=== PATIENT | male | born 1950 | race Caucasian/White ===

== ENCOUNTER 2021-05-20 18:14 | Inpatient (IN) | payer MEDICARE, OTHER ==
[~2021-05-20] VITALS: Ht 167.7 cm; Wt 99.4 kg
[2021-05-20] MEDS: POTASSIUM CL 10MEQ/50ML IVPB 50 ML IV SCH ×2 (20:30→21:30)
[2021-05-20] MEDS ORDERED: HYDROcodone/APAP 5 MG/325 MG (LORTAB) TAB PO PRN (21:30)
[2021-05-20] MEDS ORDERED: HYDROcodone/APAP 5 MG/325 MG (LORTAB) TAB ONE (21:40)
[2021-05-20 21:42] LABS: HEMATOCRIT 45 % (40-54); HEMOGLOBIN 15.8 g/dL (13.3-17.7); MEAN CORPUSCULAR HEMOGLOBIN 29 pg (25-34); MEAN CORPUSCULAR HGB CONC 36 g/dL (32-36); MEAN CORPUSCULAR VOLUME 82 fL (80-99); PLATELET COUNT 259 10^3/uL (130-400); WHITE BLOOD COUNT 10.9 10^3/uL (4.3-11.0)
[2021-05-20] MEDS: 1/2 NS IV SOLUTION 1,000 ML IV SCH (21:43)
[2021-05-20 22:00] LABS: CALCIUM 10.2 MG/DL (8.5-10.1); CREATININE SERUM 2.1 MG/DL (0.60-1.30); POTASSIUM 3.4 MMOL/L (3.6-5.0)
[2021-05-20 22:39] LABS: BILIRUBIN,URINE NEGATIVE (NEGATIVE); CLARITY,URINE CLEAR; COLOR,URINE YELLOW; GLUCOSE, URINE (UA) 1+ (NEGATIVE); KETONES,URINE NEGATIVE (NEGATIVE); LEUKOCYTE ESTERASE ,URINE NEGATIVE (NEGATIVE); NITRITE,URINE NEGATIVE (NEGATIVE); PH,URINE 5.5 (5-9); PROTEIN,URINE NEGATIVE (NEGATIVE)
[2021-05-20 22:42] LABS: BASOPHILS # (AUTO) 0.1 10^3/uL (0.0-0.1); BASOPHILS % (AUTO) 1 % (0-10); EOSINOPHILS % (AUTO) 0 % (0-10); HEMATOCRIT 46 % (40-54); HEMOGLOBIN 16.2 g/dL (13.3-17.7); LYMPHOCYTES # (AUTO) 3.4 10^3/uL (1.0-4.0); LYMPHOCYTES % (AUTO) 28 % (12-44); MEAN CORPUSCULAR HEMOGLOBIN 29 pg (25-34); MEAN CORPUSCULAR HGB CONC 35 g/dL (32-36); MEAN CORPUSCULAR VOLUME 82 fL (80-99); MONOCYTES # (AUTO) 2.2 10^3/uL (0.0-1.0); MONOCYTES % (AUTO) 18 % (0-12); NEUTROPHILS # (AUTO) 6.4 10^3/uL (1.8-7.8); NEUTROPHILS % (AUTO) 52 % (42-75); PLATELET COUNT 273 10^3/uL (130-400); WHITE BLOOD COUNT 12.2 10^3/uL (4.3-11.0)
[2021-05-20 22:53] LABS: BACTERIA,URINE FEW /HPF; SQUAMOUS EPITHELIAL CELL,UR 0-2 /HPF
[2021-05-20 22:54] LABS: AMORPHOUS SEDIMENT,UR FEW AMOR URATES /LPF
[2021-05-20 23:16] LABS: BAND NEUTROPHILS 20 %; EOSINOPHILS % (MANUAL) 1 %; LYMPHOCYTES % (MANUAL) 25 %; MONOCYTES % (MANUAL) 15 %; NEUTROPHILS % (MANUAL) 39 %; POLYCHROMASIA SLIGHT
[2021-05-20 23:27] LABS: CALCIUM 9.5 MG/DL (8.5-10.1)
[2021-05-20 23:32] LABS: CREATININE SERUM 1.9 MG/DL (0.60-1.30)
[2021-05-21] MEDS: POTASSIUM CL 10MEQ/50ML IVPB 50 ML IV SCH ×12 (00:16→22:04)
[2021-05-21] MEDS: cefTRIAXone 2,000 MG in NS (IVPB) 50 ML IV SCH ×2 (00:16→20:02)
[2021-05-21] MEDS ORDERED: HYDROcodone/APAP 5 MG/325 MG (LORTAB) TAB PO PRN (00:45)
[2021-05-21] MEDS: D5 1/2 NS 1000 ML IV SOLUTION 1,000 ML IV SCH ×2 (01:01→08:07)
[2021-05-21] MEDS ORDERED: LIDOCAINE UROJET 2% GEL 10 ML PKG ONE (01:09)
[2021-05-21] MEDS ORDERED: LIDOCAINE UROJET 2% GEL 10 ML PKG TOP ONE (01:15)
[2021-05-21 02:19] LABS: BASOPHILS # (AUTO) 0.1 10^3/uL (0.0-0.1); BASOPHILS % (AUTO) 1 % (0-10); EOSINOPHILS # (AUTO) 0.1 10^3/uL (0.0-0.3); EOSINOPHILS % (AUTO) 1 % (0-10); HEMATOCRIT 43 % (40-54); HEMOGLOBIN 14.8 g/dL (13.3-17.7); LYMPHOCYTES # (AUTO) 2.6 10^3/uL (1.0-4.0); LYMPHOCYTES % (AUTO) 26 % (12-44); MEAN CORPUSCULAR HEMOGLOBIN 29 pg (25-34); MEAN CORPUSCULAR HGB CONC 35 g/dL (32-36); MEAN CORPUSCULAR VOLUME 83 fL (80-99); MONOCYTES # (AUTO) 1.7 10^3/uL (0.0-1.0); MONOCYTES % (AUTO) 18 % (0-12); NEUTROPHILS # (AUTO) 5.3 10^3/uL (1.8-7.8); NEUTROPHILS % (AUTO) 54 % (42-75); PLATELET COUNT 217 10^3/uL (130-400); WHITE BLOOD COUNT 9.8 10^3/uL (4.3-11.0)
[2021-05-21 02:37] LABS: CALCIUM 9.1 MG/DL (8.5-10.1); CREATININE SERUM 1.88 MG/DL (0.60-1.30); POTASSIUM 3.3 MMOL/L (3.6-5.0)
[2021-05-21] MEDS: 1/2 NS IV SOLUTION 1,000 ML IV SCH ×2 (02:59→15:00)
[2021-05-21] MEDS ORDERED: hydrALAZINE (APESOLINE) 20 MG/ML VIAL ONE (04:27)
[2021-05-21] MEDS ORDERED: hydrALAZINE (APESOLINE) 20 MG/ML VIAL IV PRN (04:30)
[2021-05-21 05:53] LABS: ALBUMIN 4.1 GM/DL (3.2-4.5); POTASSIUM 3.3 MMOL/L (3.6-5.0)
[2021-05-21 05:54] LABS: CALCIUM 9.1 MG/DL (8.5-10.1)
[2021-05-21 05:56] LABS: TOTAL PROTEIN 6.7 GM/DL (6.4-8.2)
[2021-05-21 05:57] LABS: BILIRUBIN,TOTAL 0.3 MG/DL (0.1-1.0)
[2021-05-21 05:59] LABS: CREATININE SERUM 1.57 MG/DL (0.60-1.30); PHOSPHORUS 4.6 MG/DL (2.3-4.7)
--- NOTE | 2021-05-21 08:06 | Diagnostic Imaging Report ---
INDICATION: Congestive heart failure. No prior examinations are available for comparison. FINDINGS: There is cardiomegaly. There is some venous congestion. There is no pleural effusion or pneumothorax. The mediastinum is unremarkable. IMPRESSION: Cardiomegaly and mild central pulmonary venous congestion. Dictated by: Dictated on workstation # [id number]
--- NOTE | 2021-05-21 09:40 | Consultation-Cardiology ---
HPI-Cardiology Cardiology Consultation: Date of Consultation 05/21/2021 Date of Admission 05/20/2021 Attending Physician Lea Oquendo MD Admitting Physician Ana Lilia Mcmillan MD Consulting Physician NIKA JOHNSON JR, MD HPI: Time Seen by a Provider: 09:31 Chief Complaint: Reason for consultation: Heart failure. I had the pleasure of seeing Go in the intensive care unit at [facility] in [place], [place] this morning. He normally follows with a barrel inspector tight (Dr. Quintero) at [facility] in [place], [place]. However, he does not know why he sees a barrel inspector tight. He denies any previous history of myocardial infarction or heart failure. About 4 to 5 days ago he was having constipation followed by diarrhea as well as difficulty urinating. He went to the emergency room at [facility] in [place], [place] but they told him he would have to wait several hours to be seen so he went home. Yesterday he was still having issues with difficulty urinating and had general malaise. He may have had some slight shortness of breath. He had his drive him to the emergency room in [place]. He was found to be in diabetic ketoacidosis and was transferred to our facility for further treatment and evaluation. Upon review of the records from the outside emergency room, it appears as though the patient may have dementia and as such, his answers to my questions may not be entirely reliable. The outside records to report that he has a history of coronary artery disease as well as cardiomyopathy. During his outside evaluation, he was felt to also have some degree of heart failure and he was transferred to our facility. Apparently, the patient's had reported the patient was having paroxysmal nocturnal dyspnea and orthopnea and has been sleeping in a recliner chair as opposed to his bed. She also reported that he had been appearing more short of breath. He tells me from time to time he will get chest discomfort but does not recall the nature of the symptom or the last time he had this. When I was speaking with him, he was not having any active chest pain. He does get some occasional lightheaded spells but denies any syncope. He denies any palpitations. He denies any lower extremity edema but does report a rash on both legs. Because of the possible heart failure and his cardiac history, a cardiology consultation was requested. Certain portions of this document may have been dictated utilizing voice recognition technology. Inherent to this technology, typographical and grammatical errors may exist. As much as I am diligent to identify and correct these mistakes, some errors may remain in the document. Review of Systems-Cardiology Review of Systems Other comments Review of 10 organ systems is as per the history of present illness, otherwise negative. [id number] Hx Patient Social History Marrital Status: Smoking Status: Former Smoker Have you traveled recently?: No Alcohol Use?: No Pt feels they are or have been: No Immunizations Up To Date Date of Influenza Vaccine: Feb 17, 2021 Past Medical History PMH As described under Assessment. Family Medical History Family Medical History: He believes heart disease runs in his family but he is not sure of the details. Allergies and Home Medications Allergies Coded Allergies: No Known Drug Allergies (Unverified , 05/20/21) Patient Home Medication List Home Medication List Reviewed: Yes Atorvastatin Calcium (Atorvastatin Calcium) 80 Mg Tablet, 80 MG PO DAILY, (Reported) Entered as Reported by: SIOBHAN CHEUNG on 05/21/211152 Last Action: Reviewed Carvedilol (Carvedilol) 12.5 Mg Tablet, 12.5 MG PO BID, (Reported) Entered as Reported by: SIOBHAN CHEUNG on 05/21/211152 Last Action: Reviewed Dicyclomine HCl (Dicyclomine HCl) 10 Mg Capsule, 10 MG PO QID PRN for GI SPASMS, (Reported) Entered as Reported by: SIOBHAN CHEUNG on 05/21/211155 Last Action: Reviewed Donepezil HCl (Donepezil HCl) 10 Mg Tablet, 10 MG PO HS, (Reported) Entered as Reported by: SIOBHAN CHEUNG on 05/21/211152 Last Action: Reviewed Doxepin HCl (Doxepin HCl) 25 Mg Capsule, 25 MG PO HS, (Reported) Entered as Reported by: SIOBHAN CHEUNG on 05/21/211152 Last Action: Reviewed Fenofibrate (Fenofibrate) 160 Mg Tablet, 160 MG PO DAILY, (Reported) Entered as Reported by: SIOBHAN CHEUNG on 05/21/211152 Last Action: Reviewed Folic Acid (Folic Acid) 1 Mg Tablet, 1 MG PO DAILY, (Reported) Entered as Reported by: SIOBHAN CHEUNG on 05/21/211152 Last Action: Reviewed Hydrocodone/Acetaminophen (Hydrocodone-Acetamin 5-325 mg) 1 Each Tablet, 1 EA PO BID PRN for PAIN-MODERATE (5-7), (Reported) Entered as Reported by: SIOBHAN CHEUNG on 05/21/211152 Last Action: Reviewed Insulin Detemir (Levemir Flextouch) 100 Unit/1 Ml Insuln.pen, 5 UNITS SC HS, (Reported) Entered as Reported by: SIOBHAN CHEUNG on 05/21/211152 Last Action: Reviewed Isosorbide Mononitrate (Isosorbide Mononitrate ER) 30 Mg Tab.er.24h, 30 MG PO DAILY, (Reported) Entered as Reported by: SIOBHAN CHEUNG on 05/21/211152 Last Action: Reviewed Levothyroxine Sodium (Levothyroxine Sodium) 175 Mcg Tablet, 175 MCG PO DAILY, (Reported) Entered as Reported by: SIOBHAN CHEUNG on 05/21/211152 Last Action: Reviewed Lisinopril (Lisinopril) 10 Mg Tablet, 10 MG PO DAILY, (Reported) Entered as Reported by: SIOBHAN CHEUNG on 05/21/211152 Last Action: Reviewed Methotrexate Sodium (Methotrexate) 2.5 Mg Tablet, 15 MG PO FRI, (Reported) Entered as Reported by: SIOBHAN CHEUNG on 05/21/211152 Last Action: Reviewed Omeprazole (Omeprazole) 40 Mg Capsule.dr, 40 MG PO BID WITH MEALS, (Reported) Entered as Reported by: SIOBHAN CHEUNG on 05/21/211152 Last Action: Reviewed Potassium Chloride (Potassium Chloride) 20 Meq Tab.er.prt, 20 MEQ PO HS, (R eported) Entered as Reported by: SIOBHAN CHEUNG on 05/21/211152 Last Action: Reviewed Sitagliptin Phos/Metformin HCl (Janumet 50-1,000 mg Tablet) 1 Each Tablet, 1 EA PO BID WITH MEALS, (Reported) Entered as Reported by: SIOBHAN CHEUNG on 05/21/211152 Last Action: Reviewed Sulfasalazine (Sulfasalazine) 500 Mg Tablet, 1,000 MG PO QID, (Reported) Entered as Reported by: SIOBHAN CHEUNG on 05/21/211152 Last Action: Reviewed Trospium Chloride (Trospium Chloride) 20 Mg Tablet, 20 MG PO BID, (Reported) Entered as Reported by: SIOBHAN CHEUNG on 05/21/211152 Last Action: Reviewed Discontinued Medications Doxycycline Hyclate (Doxycycline Hyclate) 100 Mg Tablet, 100 MG PO QID PRN for GI SPASMS, (Reported) Discontinued Reason: No Longer Taking Entered as Reported by: SIOBHAN CHEUNG on 05/21/211152 Last Action: Discontinued Exam Vital Signs Vital Signs Date Time Temp Pulse Resp B/P (MAP) Pulse Ox O2 Delivery O2 Flow Rate FiO2 05/21/21 18:00 102 17 126/81 99 Room Air 05/21/21 15:44 36.2 Physical Exam General: Alert. No acute distress. Well nourished and appears stated age. Eye: Extraocular movements are intact. Conjunctivae are clear. There are no xanthelasma. HENT: Normocephalic. Atraumatic. Carotid pulsations 2/2 without bruits. Neck: Jugular venous pressure does not appear elevated. No thyromegaly appreciated. Respiratory: Lungs are clear to auscultation. Respirations are non-labored. Breath sounds are equal. Symmetrical chest wall expansion. Cardiovascular: Normal rate. Regular rhythm. No murmur. No gallop. Point of maximal impulse is not appear displaced. Good pulses equal in all extremities. No edema. Gastrointestinal: Soft. Normal bowel sounds. Skin: Skin turgor is normal. There is no pallor. Musculoskeletal: No kyphosis or scoliosis appreciated. Neurologic: Alert and oriented to person, place, time. He may have some degree of short-term memory loss but does recall many of the events leading up to this hospitalization. Cranial nerves 3-12 appear grossly intact. The patient has good motor tone strength in the upper and lower extremities bilaterally. Psychiatric: Cooperative. Appropriate mood & affect. Labs Laboratory Tests Test 05/20/21 21:15 05/20/21 21:35 05/20/21 21:59 05/20/21 22:25 Range/Units Glucometer 331 H 315 H 70-110 MG/DL White Blood Count 10.9 12.2 H 4.3-11.0 10^3/uL Red Blood Count 5.45 5.59 H 4.30-5.52 10^6/uL Hemoglobin 15.8 16.2 13.3-17.7 g/dL Hematocrit 45 46 40-54 % Mean Corpuscular Volume 82 82 80-99 fL Mean Corpuscular Hemoglobin 29 29 25-34 pg Mean Corpuscular Hemoglobin Concent 36 35 32-36 g/dL Red Cell Distribution Width 15.9 H 16.0 H 10.0-14.5 % Platelet Count 259 273 130-400 10^3/uL Mean Platelet Volume 10.0 10.0 9.0-12.2 fL Sodium Level 131 L 135-145 MMOL/L Potassium Level 3.4 L 3.6-5.0 MMOL/L Chloride Level 101 98-107 MMOL/L Carbon Dioxide Level 10 L 21-32 MMOL/L Anion Gap 20 H 5-14 MMOL/L Blood Urea Nitrogen 48 H 7-18 MG/DL Creatinine 2.10 H 0.60-1.30 MG/DL Estimat Glomerular Filtration Rate 33 BUN/Creatinine Ratio 23 Glucose Level 328 H 70-105 MG/DL Calcium Level 10.2 H 8.5-10.1 MG/DL Beta-Hydroxybutyrate (Chem panel) 0.37 H 0.00-0.27 MMOL/L Immature Granulocyte % (Auto) 2 % Neutrophils (%) (Auto) 52 42-75 % Lymphocytes (%) (Auto) 28 12-44 % Monocytes (%) (Auto) 18 H 0-12 % Eosinophils (%) (Auto) 0 0-10 % Basophils (%) (Auto) 1 0-10 % Neutrophils # (Auto) 6.4 1.8-7.8 10^3/uL Lymphocytes # (Auto) 3.4 1.0-4.0 10^3/uL Monocytes # (Auto) 2.2 H 0.0-1.0 10^3/uL Eosinophils # (Auto) 0.0 0.0-0.3 10^3/uL Basophils # (Auto) 0.1 0.0-0.1 10^3/uL Immature Granulocyte # (Auto) 0.2 H 0.0-0.1 10^3/uL Neutrophils % (Manual) 39 % Lymphocytes % (Manual) 25 % Monocytes % (Manual) 15 % Eosinophils % (Manual) 1 % Band Neutrophils 20 % Polychromasia SLIGHT Urine Color YELLOW Urine Clarity CLEAR Urine pH 5.5 5-9 Urine Specific [place] 1.015 L 1.016-1.022 Urine Protein NEGATIVE NEGATIVE Urine Glucose (UA) 1+ H NEGATIVE Urine Ketones NEGATIVE NEGATIVE Urine Nitrite NEGATIVE NEGATIVE Urine Bilirubin NEGATIVE NEGATIVE Urine Urobilinogen 0.2 < = 1.0 MG/DL Urine Leukocyte Esterase NEGATIVE NEGATIVE Urine RBC (Auto) TRACE-I H NEGATIVE Urine RBC 2-5 H /HPF Urine WBC NONE /HPF Urine Squamous Epithelial Cells 0-2 /HPF Urine Crystals PRESENT H /LPF Urine Amorphous Sediment FEW MADDI URATES H /LPF Urine Bacteria FEW H /HPF Urine Casts PRESENT /LPF Urine Hyaline Casts 5-10 H /LPF Urine Mucus NEGATIVE /LPF Urine Culture Indicated NO Test 05/20/21 22:55 05/20/21 23:04 05/20/21 23:12 05/21/21 00:22 Range/Units Sodium Level 130 L 135-145 MMOL/L Potassium Level 3.0 L 3.6-5.0 MMOL/L Chloride Level 101 98-107 MMOL/L Carbon Dioxide Level 9 *L 21-32 MMOL/L Anion Gap 20 H 5-14 MMOL/L Blood Urea Nitrogen 47 H 7-18 MG/DL Creatinine 1.90 H 0.60-1.30 MG/DL Estimat Glomerular Filtration Rate 38 BUN/Creatinine Ratio 25 Glucose Level 306 H 70-105 MG/DL Calcium Level 9.5 8.5-10.1 MG/DL Beta-Hydroxybutyrate (Chem panel) 0.51 H 0.00-0.27 MMOL/L Lactic Acid Level 3.38 *H 0.50-2.00 MMOL/L Glucometer 276 H 253 H 70-110 MG/DL Test 05/21/21 00:58 05/21/21 02:13 05/21/21 02:40 05/21/21 03:09 Range/Units Glucometer 238 H 239 H 245 H 70-110 MG/DL White Blood Count 9.8 4.3-11.0 10^3/uL Red Blood Count 5.12 4.30-5.52 10^6/uL Hemoglobin 14.8 13.3-17.7 g/dL Hematocrit 43 40-54 % Mean Corpuscular Volume 83 80-99 fL Mean Corpuscular Hemoglobin 29 25-34 pg Mean Corpuscular Hemoglobin Concent 35 32-36 g/dL Red Cell Distribution Width 15.9 H 10.0-14.5 % Platelet Count 217 130-400 10^3/uL Mean Platelet Volume 10.0 9.0-12.2 fL Immature Granulocyte % (Auto) 1 % Neutrophils (%) (Auto) 54 42-75 % Lymphocytes (%) (Auto) 26 12-44 % Monocytes (%) (Auto) 18 H 0-12 % Eosinophils (%) (Auto) 1 0-10 % Basophils (%) (Auto) 1 0-10 % Neutrophils # (Auto) 5.3 1.8-7.8 10^3/uL Lymphocytes # (Auto) 2.6 1.0-4.0 10^3/uL Monocytes # (Auto) 1.7 H 0.0-1.0 10^3/uL Eosinophils # (Auto) 0.1 0.0-0.3 10^3/uL Basophils # (Auto) 0.1 0.0-0.1 10^3/uL Immature Granulocyte # (Auto) 0.1 0.0-0.1 10^3/uL Sodium Level 130 L 135-145 MMOL/L Potassium Level 3.3 L 3.6-5.0 MMOL/L Chloride Level 104 98-107 MMOL/L Carbon Dioxide Level 11 L 21-32 MMOL/L Anion Gap 15 H 5-14 MMOL/L Blood Urea Nitrogen 45 H 7-18 MG/DL Creatinine 1.88 H 0.60-1.30 MG/DL Estimat Glomerular Filtration Rate 38 BUN/Creatinine Ratio 24 Glucose Level 266 H 70-105 MG/DL Lactic Acid Level 2.69 *H 0.50-2.00 MMOL/L Calcium Level 9.1 8.5-10.1 MG/DL B-Type Natriuretic Peptide 43.3 <100.0 PG/ML Test 05/21/21 04:02 05/21/21 05:00 05/21/21 05:36 05/21/21 06:05 Range/Units Glucometer 216 H 147 H 70-110 MG/DL Sodium Level 136 135-145 MMOL/L Potassium Level 3.3 L 3.6-5.0 MMOL/L Chloride Level 105 98-107 MMOL/L Carbon Dioxide Level 13 L 21-32 MMOL/L Anion Gap 18 H 5-14 MMOL/L Blood Urea Nitrogen 43 H 7-18 MG/DL Creatinine 1.57 H 0.60-1.30 MG/DL Estimat Glomerular Filtration Rate 47 BUN/Creatinine Ratio 27 Glucose Level 131 H 70-105 MG/DL Lactic Acid Level 1.90 0.50-2.00 MMOL/L Calcium Level 9.1 8.5-10.1 MG/DL Corrected Calcium 9.0 8.5-10.1 MG/DL Phosphorus Level 4.6 2.3-4.7 MG/DL Magnesium Level 2.0 1.6-2.4 MG/DL Total Bilirubin 0.3 0.1-1.0 MG/DL Aspartate Amino Transf (AST/SGOT) 18 5-34 U/L Alanine Aminotransferase (ALT/SGPT) 20 0-55 U/L Alkaline Phosphatase 72 40-136 U/L Troponin I < 0.028 <0.028 NG/ML Total Protein 6.7 6.4-8.2 GM/DL Albumin 4.1 3.2-4.5 GM/DL Beta-Hydroxybutyrate (Chem panel) 0.07 0.00-0.27 MMOL/L Serum Alcohol < 10 <10 MG/DL Stool Occult Blood Immunoassay POSITIVE H NEGATIVE Test 05/21/21 07:02 05/21/21 07:59 05/21/21 09:08 05/21/21 10:02 Range/Units Glucometer 87 145 H 168 H 121 H 70-110 MG/DL Test 05/21/21 10:25 05/21/21 11:21 05/21/21 13:02 05/21/21 13:04 Range/Units Sodium Level 136 135-145 MMOL/L Potassium Level 3.3 L 3.6-5.0 MMOL/L Chloride Level 106 98-107 MMOL/L Carbon Dioxide Level 14 L 21-32 MMOL/L Anion Gap 16 H 5-14 MMOL/L Blood Urea Nitrogen 40 H 7-18 MG/DL Creatinine 1.55 H 0.60-1.30 MG/DL Estimat Glomerular Filtration Rate 48 BUN/Creatinine Ratio 26 Glucose Level 107 H 70-105 MG/DL Calcium Level 9.0 8.5-10.1 MG/DL Glucometer 120 H 153 H 70-110 MG/DL Urine Color YELLOW Urine Clarity SL CLOUDY Urine pH 5.5 5-9 Urine Specific [place] 1.025 H 1.016-1.022 Urine Protein TRACE H NEGATIVE Urine Glucose (UA) 1+ H NEGATIVE Urine Ketones NEGATIVE NEGATIVE Urine Nitrite NEGATIVE NEGATIVE Urine Bilirubin NEGATIVE NEGATIVE Urine Urobilinogen 0.2 < = 1.0 MG/DL Urine Leukocyte Esterase NEGATIVE NEGATIVE Urine RBC (Auto) 2+ H NEGATIVE Urine RBC 10-25 H /HPF Urine WBC 10-25 H /HPF Urine Squamous Epithelial Cells 0-2 /HPF Urine Renal Epithelial Cells 0-2 /HPF Urine Crystals PRESENT H /LPF Urine Uric Acid Crystals LARGE H /LPF Urine Bacteria MODERATE H /HPF Urine Casts NONE /LPF Urine Mucus NEGATIVE /LPF Urine Culture Indicated YES Test 05/21/21 13:54 05/21/21 14:57 05/21/21 15:58 05/21/21 16:21 Range/Units Glucometer 137 H 133 H 123 H 70-110 MG/DL Sodium Level 136 135-145 MMOL/L Potassium Level 3.4 L 3.6-5.0 MMOL/L Chloride Level 106 98-107 MMOL/L Carbon Dioxide Level 14 L 21-32 MMOL/L Anion Gap 16 H 5-14 MMOL/L Blood Urea Nitrogen 36 H 7-18 MG/DL Creatinine 1.57 H 0.60-1.30 MG/DL Estimat Glomerular Filtration Rate 47 BUN/Creatinine Ratio 23 Glucose Level 119 H 70-105 MG/DL Calcium Level 8.8 8.5-10.1 MG/DL Test 05/21/21 16:56 05/21/21 18:02 05/21/21 18:46 Range/Units Glucometer 141 H 149 H 177 H 70-110 MG/DL Radiology ECHOCARDIOGRAM (05/21/2021): 1. This is a technically difficult study due to poor image quality. It almost appeared as though the patient has dextrocardia since most of the images were obtained from the right side of the chest. 2. Left ventricle: The cavity size is normal. There is mild concentric hypertrophy. Systolic function is normal. The estimated ejection fraction is 55- 60%. Regional wall motion abnormalities cannot be excluded due to poor endocardial definition. Doppler parameters are consistent with abnormal left ventricular relaxation (grade 1 diastolic dysfunction). 3. Mitral valve: There is mild regurgitation. 4. Pulmonary arteries: The estimated pulmonary artery systolic pressure is 30 mmHg assuming a right atrial pressure of 5 mmHg. ECG Impression ECG Comment Sinus rhythm with left bundle branch block. Diagnosis/Problems Diagnosis/Problems (1) Acute on chronic heart failure with preserved ejection fraction (HFpEF) Assessment & Plan: His echocardiogram from today shows a normal ejection fraction. However, he was taking carvedilol and lisinopril at home which suggests at some point he may have had left ventricular systolic dysfunction. If his blood pressure and renal function will tolerate these medications, we will resume them. I have requested records from his regular barrel inspector tight in [place]. (2) Coronary artery disease without angina pectoris Assessment & Plan: His outside records show a reported history of coronary artery disease. He is not aware of this diagnosis. I will wait to review records from his regular barrel inspector tight in [place]. (3) Primary hypertension Assessment & Plan: Blood pressure is presently controlled on no antihypertensive medication. As above, resume his regular outpatient medications when his blood pressure and renal function will tolerate. (4) Mixed hyperlipidemia Assessment & Plan: I have resumed his atorvastatin and added a lipid panel to previous labs. (5) Chronic kidney disease, stage 3 Assessment & Plan: He is receiving some gentle hydration. This will need to be monitored closely. For now, I will hold off on resuming his lisinopril. (6) Obesity Assessment & Plan: He needs to be counseled on weight loss. NIKA JOHNSON JR, MD May 21, 2021 09:40
[2021-05-21 09:41] LABS: CHLORIDE 107 MMOL/L (98-107); POTASSIUM 3.4 MMOL/L (3.6-5.0); SODIUM 136 MMOL/L (135-145)
[2021-05-21 09:42] LABS: CALCIUM 9.2 MG/DL (8.5-10.1)
[2021-05-21 09:43] LABS: GLUCOSE 129 MG/DL (70-105)
[2021-05-21 09:44] LABS: CARBON DIOXIDE 12 MMOL/L (21-32)
[2021-05-21 09:47] LABS: CREATININE SERUM 1.57 MG/DL (0.60-1.30); GFR ESTIMATED 47
[2021-05-21 09:48] LABS: BUN/CREATININE RATIO 27
--- NOTE | 2021-05-21 10:39 | Tele-ICU Consult ---
History of Present Illness History of Present Illness Date Seen by Provider: May 21, 2021 Time Seen by Provider: 09:39 Date of Admission Allergies and Home Medications Allergies Coded Allergies: No Known Drug Allergies (Unverified , 05/20/21) Past Medical/Social/Family Hx Patient Social History Marrital Status: Tobacco Use?: No Smoking Status: Former Smoker Substance use?: No Alcohol Use?: No Pt stated abuse/neglect: No Immunizations Up To Date Influenza Vaccine Up-to-Date: Yes; Up-to-Date First/Initial COVID19 Vaccinat: 2020 Current Status Advance Directives: No Communicates: Verbally Primary Language: Maori Preferred Spoken Language: Maori Sensory deficits: Hearing impairment Implanted or Applied Medical D: Orthopedic hardware Review of Systems Constitutional: see HPI Focused Exam Lactate Level 05/20/21 23:04: Lactic Acid Level 3.38*H 05/21/21 02:13: Lactic Acid Level 2.69*H 05/21/21 05:36: Lactic Acid Level 1.90 Height, Weight, BMI Height: '" Weight: lbs. oz. kg; 32.96 BMI Method: Exam Exam Patient acknowledged, consented, and participated in this virtual visit which was conducted using real time audio/video Vital Signs Date Time Temp Pulse Resp B/P (MAP) Pulse Ox O2 Delivery O2 Flow Rate FiO2 05/21/21 08:45 86 32 150/88 99 05/21/21 08:30 86 22 133/87 96 05/21/21 08:15 85 21 146/86 99 05/21/21 08:00 93 26 138/80 96 05/21/21 07:45 87 22 124/78 95 05/21/21 07:30 85 20 111/73 94 05/21/21 07:15 83 15 115/75 97 05/21/21 07:00 120/77 05/21/21 07:00 85 05/21/21 06:26 100 Room Air 05/21/21 06:00 82 19 128/78 97 Room Air 05/21/21 05:00 85 10 117/96 99 Room Air 05/21/21 04:15 83 17 126/82 97 Room Air 05/21/21 04:00 35.9 Room Air 05/21/21 03:30 82 13 135/101 96 Room Air 05/21/21 03:10 81 17 183/142 98 Room Air 05/21/21 03:04 100 Room Air 05/21/21 03:00 84 27 207/137 97 Room Air 05/21/21 02:45 86 17 155/96 97 Room Air 05/21/21 01:00 94 05/21/21 01:00 94 19 155/104 100 Room Air 05/21/21 00:00 36.0 05/21/21 00:00 100 Room Air 05/21/21 00:00 92 24 142/93 97 Room Air 05/20/21 23:00 90 22 134/90 97 Room Air 05/20/21 22:00 90 32 154/103 99 Room Air 05/20/21 21:45 89 26 152/90 99 Room Air 05/20/21 21:30 95 17 134/102 99 Room Air 05/20/21 21:15 96 25 120/87 97 Room Air 05/20/21 21:09 96 05/20/21 21:08 35.7 96 28 143/90 98 Room Air 05/20/21 21:05 100 Room Air I & O 05/21/21 07:00 Intake Total 1500 ml Output Total 875 ml Balance 625 ml Height & Weight Height: '" Weight: lbs. oz. kg; 32.96 BMI Method: General Appearance: No Apparent Distress Results Lab Laboratory Tests 05/20/21 21:35 05/20/21 22:25 05/20/21 22:55 05/21/21 02:13 05/21/21 05:36 Assessment/Plan Assessment/Plan (Tele-ICU Physician , consultation) Available chart/ vitals / labs / Images reviewed no H&P or notes yet in EMR ROS as per chart and RN report Now in ICU, hemodynamically stable Video assessment done using teleICU camera, rest of exam as per RN Discussed with RN. Consultants: cards Hospital course: 05/21 - transfer fropm other hosp with DKA , CHIARA , diarrhea A/P DKA - in insulin gtt - follow labs CHIARA - good UO - follow - baseline unknown - ? need US if no improvement - avoid nephrotoxic meds Diarrhea , reported - ? w/up in other facility done - as per PCP h/o CAD, CM - crds consulted , - ECHO ID - in ceftriaxine - UA neg - cx pending Lines : (Central Line Necessity Reviewed) [place]: + OG: Nutrition: Analgesia: Anxiety/ delirium VTE Prophylaxis: Stress Ulcer Prophylaxis: hep sq Plans in collaboration with bedside consultants and IM MDs. Discussed with RN to reach out if any questions or concerns A total of 32 minutes of critical care time was devoted to this patient today, required to treat and/or prevent further deterioration of critical care condition ( as above ) . VERA DELGADO MD May 21, 2021 10:39
[2021-05-21] MEDS ORDERED: FOLI1TAB33 PO (11:53)
[2021-05-21] MEDS ORDERED: OMEP40CA6 PO (11:53)
[2021-05-21] MEDS ORDERED: INSU100I29 SC (11:53)
[2021-05-21] MEDS ORDERED: METH2.5T PO (11:53)
[2021-05-21] MEDS ORDERED: ATOR80TA76 PO (11:53)
[2021-05-21] MEDS ORDERED: DOXE25CA46 PO (11:53)
[2021-05-21] MEDS ORDERED: LEVO175T5 PO (11:53)
[2021-05-21] MEDS ORDERED: TROS20TA3 PO (11:53)
[2021-05-21] MEDS ORDERED: ISOS30TA82 PO (11:53)
[2021-05-21] MEDS ORDERED: CARV12.53 PO (11:53)
[2021-05-21] MEDS ORDERED: FENO160T12 PO (11:53)
[2021-05-21] MEDS ORDERED: DOXY100T2 PO (11:53)
[2021-05-21] MEDS ORDERED: SLF500T PO (11:53)
[2021-05-21] MEDS ORDERED: LISI10TA25 PO (11:53)
[2021-05-21] MEDS ORDERED: DONE10TA41 PO (11:53)
[2021-05-21] MEDS ORDERED: POTA-179 PO (11:53)
[2021-05-21] MEDS ORDERED: ACHD5005 PO (11:53)
[2021-05-21] MEDS ORDERED: SITA1TAB6 PO (11:53)
[2021-05-21] MEDS ORDERED: DICY10CA12 PO (11:56)
--- NOTE | 2021-05-21 12:20 | History & Physical-Hospitalist ---
VERONIKA MARRERO MED STUDENT 05/21/21 1220: History of Present Illness HPI/Chief Complaint This is a 71 yo male who was admitted from [facility] for DKA and sepsis. Pt has hx of diabetes, dementia, CAD, cardiomyopathy, HTN, hyperlipidemia, hypothyroidism, JANI and arthritis being treated with methotrexate. Pt is a poor historian d/t dementia and this information is based off his interview. Pt reports he was having diarrhea, cough, SOA when lying flat and poor appetite for the last five days. Pt also reports his shins have been itchy and red recently. Pt denies any current fever, chills, N/V, chest pain, SOA. Pt reports he was taking trulicity up until a month ago and is unsure of what he takes now. He did state he takes methotrexate for arthritis. Pt follows up for GERD with Dr. Moreira at [facility] and reports he sees him every six months to have his "esophagus stretched". Pt reports his last colonoscopy and EGD were six months ago. Source: patient Exam Limitations: other (Dementia) Date Seen 05/21/21 Time Seen by a Provider: 09:45 Attending Physician Bettye Coleman MD PCP Ana Lilia Mcmillan MD Referring Physician Date of Admission May 20, 2021 at 21:02 Home Medications & Allergies Home Medications Reviewed patient Home Medication Reconciliation performed by pharmacy medication reconciliations master motorcycle technician and/or nursing. Patients Allergies have been reviewed. Allergies Allergies Coded Allergies No Known Drug Allergies (Unverified05/20/21) Past Euyrmzf-Toxudg-Vtxzgl Hx Patient Social History Marrital Status: Tobacco Use?: No Smoking Status: Former Smoker Substance use?: No Alcohol Use?: No Pt feels they are or have been: No Immunizations Up To Date Date of Influenza Vaccine: Feb 17, 2021 First/Initial COVID19 Vaccinat: 2020 Current Status Advance Directives: No Communicates: Verbally Primary Language: Polish Preferred Spoken Language: Polish Sensory deficits: Hearing impairment Implanted or Applied Medical D: Orthopedic hardware Review of Systems Constitutional: No chills, No fever EENTM: no symptoms reported Respiratory: cough; No short of breath Cardiovascular: No chest pain, No palpitations Gastrointestinal: diarrhea; No nausea, No vomiting Genitourinary: no symptoms reported Musculoskeletal: no symptoms reported Skin: pruritus (bilateral LE), rash (bilateral LE) Psychiatric/Neurological: No Symptoms Reported Physical Exam Physical Exam Vital Signs Vital Signs - First Documented 05/20/21 05/20/21 21:05 21:08 Temp 35.7 Pulse 96 Resp 28 B/P (MAP) 143/90 Pulse Ox 100 O2 Delivery Room Air Capillary Refill : Height, Weight, BMI Height: '" Weight: lbs. oz. kg; 32.96 BMI Method: General Appearance: No Apparent Distress, WD/WN HEENT: PERRL/EOMI Respiratory: Chest Non Tender, No Accessory Muscle Use, No Respiratory Distress Cardiovascular: No Murmur, Tachycardia Gastrointestinal: Normal Bowel Sounds, Tenderness (RUQ) Extremity: Pedal Edema (1+ pitting edema bilaterally) Neurologic/Psychiatric: Alert, Oriented x3 Skin: Warm/Dry, Petechia (bilateral shins), Rash (bilateral shins) Results Results/Procedures Labs Laboratory Tests 05/20/21 21:35 05/20/21 22:25 05/20/21 22:55 05/21/21 02:13 05/21/21 05:36 Patient resulted labs reviewed. Assessment/Plan Admission Diagnosis DKA Reason for Inpatient Admission: DKA Assessment and Plan This is a 71 yo male who is admitted for DKA and Sepsis d/t colitis and prostatitis. DKA -Insulin drip -Dextrose/NaCl at 100ml/hr Sepsis d/t colitis and prostatitis -CT from [place] showed colitis and prostatitis -Surgery consulted, appreciate their recommendations -Lactic acidosis Acute on chronic heart failure -Cardiology consulted, appreciate their recommendations -Elevated BNP and troponin -CXR showed cardiomegaly and central pulmonary venous congestion -Echo pending Coronary artery disease HTN Hyperlipidemia Acute kidney injury with CKD 3 Obesity Disposition: Likely to stay 48-72 hours BETTYE COLEMAN MD 05/21/212020: History of Present Illness Source: patient Exam Limitations: other (Dementia) Time Seen by a Provider: 10:00 Past Fbyrrra-Ywcgcc-Vrljda Hx Past Medical History Coronary Artery Disease, Hypertension Dementia Gastroesophageal Reflux Rheumatoid Arthritis Diabetes, Non-Insulin dep Family Medical History No Pertinent Family Hx Physical Exam Physical Exam General Appearance: No Apparent Distress, Obese HEENT: PERRL/EOMI, Pharynx Normal Neck: Normal Inspection, Supple Respiratory: Lungs Clear, Normal Breath Sounds, No Respiratory Distress Cardiovascular: No Murmur, Tachycardia Gastrointestinal: Normal Bowel Sounds, Soft, Tenderness (diffusely, right > left) Extremity: Normal Inspection, Non Tender, Pedal Edema (1+ pitting edema bilaterally) Neurologic/Psychiatric: Alert, No Motor/Sensory Deficits, Other (flat affect) Skin: Warm/Dry, Petechia (bilateral shins) Results Results/Procedures Imaging: Reviewed Imaging Report Assessment/Plan Admission Diagnosis Admission Status: Inpatient Order (span 2 midnights) Reason for Inpatient Admission: IV insulin Surgical evaluation Assessment and Plan Admitted with DKA and colitis. Started on IV insulin. CT with colitis, surgery consulted. Critical Care Critically Ill Patient Diagnosis/Problems Diagnosis/Problems (1) DKA (diabetic ketoacidosis) Status: Acute Qualifiers: Diabetes mellitus type: type 2 Diabetes mellitus complication detail: without coma Qualified Codes: E11.10 - Type 2 diabetes mellitus with ketoacidosis without coma (2) Metabolic acidosis Status: Acute (3) Type 2 diabetes mellitus with complication Status: Acute (4) Chronic kidney disease, stage 3 Status: Chronic (5) Obesity Status: Chronic (6) Acute on chronic heart failure with preserved ejection fraction (HFpEF) Status: Acute Supervisory-Addendum Brief Verification & Attestation Participated in pt care: history, MDM, physical Personally performed: exam, history, MDM, supervision of care Care discussed with: Medical Student Procedures: n/a Results interpretation: Verified all documentation A medical student performed and documented this service in my presence. I review ed and verified all information documented by the medical student and made modifications to such information, when appropriate. I personally performed the physical exam and medical decision making. VERONIKA MARRERO MED STUDENT May 21, 2021 12:20 BETTYE COLEMAN MD May 21, 2021 20:21
[2021-05-21 12:24] LABS: POTASSIUM 3.3 MMOL/L (3.6-5.0)
[2021-05-21 12:30] LABS: CREATININE SERUM 1.55 MG/DL (0.60-1.30)
--- NOTE | 2021-05-21 12:45 | Diagnostic Imaging Report ---
INDICATION: Shortness of breath. TIME OF EXAM: 12:35 PM Comparison is made with prior chest earlier same day. Heart size stable. Hemidiaphragms bilaterally elevated. Lungs are clear. There is no infiltrate or failure. No effusion or pneumothorax is detected. IMPRESSION: No acute cardiopulmonary process is detected. Dictated by: Dictated on workstation # [id number]
[2021-05-21 13:32] LABS: BILIRUBIN,URINE NEGATIVE (NEGATIVE); CLARITY,URINE SL CLOUDY; COLOR,URINE YELLOW; GLUCOSE, URINE (UA) 1+ (NEGATIVE); KETONES,URINE NEGATIVE (NEGATIVE); LEUKOCYTE ESTERASE ,URINE NEGATIVE (NEGATIVE); NITRITE,URINE NEGATIVE (NEGATIVE); PH,URINE 5.5 (5-9); PROTEIN,URINE TRACE (NEGATIVE)
[2021-05-21 13:45] LABS: BACTERIA,URINE MODERATE /HPF; RENAL EPITHELIAL CELLS,URINE 0-2 /HPF; SQUAMOUS EPITHELIAL CELL,UR 0-2 /HPF; URIC ACID CRYSTALS,URINE LARGE /LPF
--- NOTE | 2021-05-21 14:56 | CONSULTATION REPORT ---
DATE OF SERVICE: 05/21/2021 ATTENDING PRIMARY CARE PHYSICIAN: Ana Lilia Mcmillan. ADMITTING PHYSICIAN: Dr. Oquendo. HISTORY OF PRESENT ILLNESS: The patient is a 71-year-old male who was transferred from [place] due to diabetic ketoacidosis and sepsis. He has a number of medical comorbidities including diabetes, dementia, coronary artery disease, cardiomyopathy and hypertension. He is a poor historian due to history of dementia. He reports that he was having a cough and diarrhea for the past 5 days. He does not know of any red blood per rectum nor any dark tarry stools. He also has a history of gastroesophageal reflux disease as well as dysphagia and a known esophageal stricture and has undergone previous balloon dilatations in the past. A CT scan was performed in [place], which did show colitis. Due to his significant past medical history and likely global hypoperfusion, dehydration and low flow states this was the cause of his colitis. PAST MEDICAL HISTORY: Diabetes, congestive heart failure, coronary artery disease, hypertension, hyperlipidemia, chronic kidney disease, obstructive sleep apnea, hypothyroid, hyperlipidemia, hypertension, degenerative joint disease. PAST SURGICAL HISTORY: None known. ALLERGIES: No known drug allergies. MEDICATIONS: Atorvastatin 80 mg daily, carvedilol 12.5 mg daily, dicyclomine 10 mg q.i.d., donepezil 10 mg daily, doxepin 25 mg daily, fenofibrate 160 mg daily, folic acid 1 mg daily, hydrocodone p.r.n., detemir insulin 5 units at bedtime, isosorbide mononitrate 30 mg daily, levothyroxine 175 mcg daily, lisinopril 10 mg daily, methotrexate 2.5 mg weekly, omeprazole 40 mg daily, potassium 20 mEq daily, Janumet 1 tab b.i.d., sulfasalazine 500 mg q.i.d., trospium 20 mg b.i.d. SOCIAL HISTORY: Previous smoke, negative alcohol. FAMILY HISTORY: Noncontributory. VITAL SIGNS: Blood pressure 136/82, pulse 91, respirations 25, pulse ox 93% on room air. REVIEW OF SYSTEMS: A well-nourished male currently in no acute distress. He is slightly confused; however, does answer majority of questions appropriately. Currently, he is not experiencing any shortness of breath or difficulty breathing. No chest pain, palpitations, diaphoresis. No nausea, vomiting with approximately 5-day history of loose stools. He does not know of any red blood per rectum nor any dark tarry stools; however, he was Hemoccult positive. No fever, chills, no recent inadvertent weight loss. All other review of systems negative. PHYSICAL EXAMINATION: CHEST: Scattered rales and rhonchi bilaterally. HEART: Regular, no murmurs. EXTREMITIES: +1/3 bilateral lower extremity edema, negative Homans sign. HEENT: No scleral icterus. NECK: No cervical lymphadenopathy. ABDOMEN: Soft, nondistended. There is mild discomfort in the left lateral abdomen upon deep palpation. No peritoneal signs. SKIN: Warm, dry. LABORATORY DATA: WBC 9.8, hemoglobin 14.8, hematocrit 43, platelets 217. BUN 40, creatinine 1.55. Urinalysis, moderate amount of bacteria. ASSESSMENT AND PLAN: A 71-year-old male with ischemic colitis due to hypovolemia and low flow states. This was also coupled with his history of coronary artery disease and likely peripheral vascular disease. Our recommendation is to proceed with conservative management with IV antibiotics as well as bowel rest and to optimize his perfusion status by increasing his intravascular volume as well as optimizing his cardiac status. Once he is better and asymptomatic, we will then recommend a followup colonoscopy in approximately 6 to 8 weeks. Job ID: [id number] DocumentID: [id number] Dictated Date: 05/21/2021 14:36:19 Fur Ironer Date: 05/21/2021 14:54:34 Dictated By: HARI NG MD
[2021-05-21 16:41] LABS: POTASSIUM 3.4 MMOL/L (3.6-5.0)
[2021-05-21 16:42] LABS: CALCIUM 8.8 MG/DL (8.5-10.1)
[2021-05-21 16:47] LABS: CREATININE SERUM 1.57 MG/DL (0.60-1.30)
[2021-05-21] MEDS: methylPREDNISolone 40 MG/ML (Solu-MEDROL) VIAL IV SCH (18:26)
[2021-05-21 19:50] LABS: CHOLESTEROL 108 MG/DL (< 200); HDL CHOLESTEROL 25 MG/DL (40-60); TRIGLYCERIDES 249 MG/DL (<150); VLDL CHOLESTEROL 50 MG/DL (5-40)
[2021-05-21] MEDS: metroNIDAZOLE 500MG/100ML IVPB 100 ML IV SCH (20:02)
[2021-05-21 21:31] LABS: POTASSIUM 3.7 MMOL/L (3.6-5.0)
[2021-05-21 21:32] LABS: CALCIUM 8.6 MG/DL (8.5-10.1)
[2021-05-21 21:36] LABS: CREATININE SERUM 1.44 MG/DL (0.60-1.30)
[2021-05-22] MEDS: methylPREDNISolone 40 MG/ML (Solu-MEDROL) VIAL IV SCH ×2 (00:32→05:55)
[2021-05-22] MEDS: POTASSIUM CL 10MEQ/50ML IVPB 50 ML IV SCH ×5 (00:33→08:19)
[2021-05-22 01:13] LABS: BASOPHILS # (AUTO) 0.1 10^3/uL (0.0-0.1); BASOPHILS % (AUTO) 1 % (0-10); EOSINOPHILS % (AUTO) 0 % (0-10); HEMATOCRIT 42 % (40-54); HEMOGLOBIN 14.2 g/dL (13.3-17.7); LYMPHOCYTES # (AUTO) 1.2 10^3/uL (1.0-4.0); LYMPHOCYTES % (AUTO) 15 % (12-44); MEAN CORPUSCULAR HEMOGLOBIN 29 pg (25-34); MEAN CORPUSCULAR HGB CONC 34 g/dL (32-36); MEAN CORPUSCULAR VOLUME 84 fL (80-99); MEAN PLATELET VOLUME 10.1 fL (9.0-12.2); MONOCYTES # (AUTO) 0.5 10^3/uL (0.0-1.0); MONOCYTES % (AUTO) 6 % (0-12); NEUTROPHILS # (AUTO) 6.3 10^3/uL (1.8-7.8); NEUTROPHILS % (AUTO) 77 % (42-75); PLATELET COUNT 206 10^3/uL (130-400); WHITE BLOOD COUNT 8.1 10^3/uL (4.3-11.0)
[2021-05-22 01:22] LABS: ALBUMIN 3.8 GM/DL (3.2-4.5); POTASSIUM 4.1 MMOL/L (3.6-5.0)
[2021-05-22 01:23] LABS: CALCIUM 8.5 MG/DL (8.5-10.1)
[2021-05-22 01:24] LABS: TOTAL PROTEIN 6.2 GM/DL (6.4-8.2)
[2021-05-22 01:26] LABS: BILIRUBIN,TOTAL 0.4 MG/DL (0.1-1.0)
[2021-05-22] MEDS: 1/2 NS IV SOLUTION 1,000 ML IV SCH (01:27)
[2021-05-22 01:28] LABS: CREATININE SERUM 1.34 MG/DL (0.60-1.30); PHOSPHORUS 2.8 MG/DL (2.3-4.7)
[2021-05-22 01:31] LABS: MAGNESIUM 1.8 MG/DL (1.6-2.4)
[2021-05-22] MEDS: D5 1/2 NS 1000 ML IV SOLUTION 1,000 ML IV SCH (03:40)
[2021-05-22 05:28] LABS: CALCIUM 8.5 MG/DL (8.5-10.1); CREATININE SERUM 1.43 MG/DL (0.60-1.30); POTASSIUM 4.3 MMOL/L (3.6-5.0)
[2021-05-22] MEDS: metroNIDAZOLE 500MG/100ML IVPB 100 ML IV SCH ×2 (08:19→19:44)
[2021-05-22] MEDS: SODIUM BICARBONATE 650 MG TABLET (NON-FORMULARY) PO SCH ×4 (08:22→19:43)
--- NOTE | 2021-05-22 10:07 | Cardiology Progress Note ---
Progress Note-Cardiology Events since last exam Date Seen by Provider: May 22, 2021 Time Seen by Provider: 10:05 Events since last exam I am following him due to heart failure. He was laying flat in bed. He states his breathing is improved. He denies chest discomfort, palpitations, syncope, or ankle edema. He wants to know when he can go home. Certain portions of this document may have been dictated utilizing voice recognition technology. Inherent to this technology, typographical and grammatical errors may exist. As much as I am diligent to identify and correct these mistakes, some errors may remain in the document. Vitals Last set of Vitals Signs Vital Signs 05/22/21 14:00 Pulse 109 Resp 36 B/P (MAP) 126/79 Pulse Ox 100 O2 Delivery Room Air Labs Labs Laboratory Tests 05/21/21 16:21 05/21/21 21:18 05/22/21 00:55 05/22/21 04:50 05/22/21 09:20 05/22/21 14:09 Exam Vital Signs Vital Signs Date Time Temp Pulse Resp B/P (MAP) Pulse Ox O2 Delivery O2 Flow Rate FiO2 05/22/21 14:00 109 36 126/79 100 Room Air 05/22/21 04:00 35.7 Physical Exam General: Alert. No acute distress. Eye: No xanthelasma. HENT: Normocephalic. Neck: Jugular venous pressure does not appear elevated. Respiratory: Lungs are clear to auscultation. Respirations are non-labored. Breath sounds are equal. Symmetrical chest wall expansion. Cardiovascular: Normal rate. Regular rhythm. No murmur. No gallop. No edema. Gastrointestinal: Soft. Normal bowel sounds. Skin: Warm. Dry. Neurologic: Alert and oriented to person, place, time. Cranial nerves 3-11 grossly intact. Psychiatric: Cooperative. Appropriate mood & affect. Labs Laboratory Tests Test 05/21/21 14:57 05/21/21 15:58 05/21/21 16:21 05/21/21 16:56 Range/Units Glucometer 133 H 123 H 141 H 70-110 MG/DL Sodium Level 136 135-145 MMOL/L Potassium Level 3.4 L 3.6-5.0 MMOL/L Chloride Level 106 98-107 MMOL/L Carbon Dioxide Level 14 L 21-32 MMOL/L Anion Gap 16 H 5-14 MMOL/L Blood Urea Nitrogen 36 H 7-18 MG/DL Creatinine 1.57 H 0.60-1.30 MG/DL Estimat Glomerular Filtration Rate 47 BUN/Creatinine Ratio 23 Glucose Level 119 H 70-105 MG/DL Calcium Level 8.8 8.5-10.1 MG/DL Triglycerides Level 249 H <150 MG/DL Cholesterol Level 108 < 200 MG/DL LDL Cholesterol Direct 49 1-129 MG/DL VLDL Cholesterol 50 H 5-40 MG/DL HDL Cholesterol 25 L 40-60 MG/DL Test 05/21/21 18:02 05/21/21 18:46 05/21/21 19:58 05/21/21 20:48 Range/Units Glucometer 149 H 177 H 228 H 196 H 70-110 MG/DL Test 05/21/21 21:18 05/21/21 21:53 05/21/21 22:49 05/21/21 23:57 Range/Units Sodium Level 135 135-145 MMOL/L Potassium Level 3.7 3.6-5.0 MMOL/L Chloride Level 106 98-107 MMOL/L Carbon Dioxide Level 15 L 21-32 MMOL/L Anion Gap 14 5-14 MMOL/L Blood Urea Nitrogen 32 H 7-18 MG/DL Creatinine 1.44 H 0.60-1.30 MG/DL Estimat Glomerular Filtration Rate 53 BUN/Creatinine Ratio 22 Glucose Level 172 H 70-105 MG/DL Calcium Level 8.6 8.5-10.1 MG/DL Glucometer 164 H 171 H 155 H 70-110 MG/DL Test 05/22/21 00:55 05/22/21 01:01 05/22/21 01:54 05/22/21 03:03 Range/Units White Blood Count 8.1 4.3-11.0 10^3/uL Red Blood Count 4.96 4.30-5.52 10^6/uL Hemoglobin 14.2 13.3-17.7 g/dL Hematocrit 42 40-54 % Mean Corpuscular Volume 84 80-99 fL Mean Corpuscular Hemoglobin 29 25-34 pg Mean Corpuscular Hemoglobin Concent 34 32-36 g/dL Red Cell Distribution Width 16.2 H 10.0-14.5 % Platelet Count 206 130-400 10^3/uL Mean Platelet Volume 10.1 9.0-12.2 fL Immature Granulocyte % (Auto) 2 % Neutrophils (%) (Auto) 77 H 42-75 % Lymphocytes (%) (Auto) 15 12-44 % Monocytes (%) (Auto) 6 0-12 % Eosinophils (%) (Auto) 0 0-10 % Basophils (%) (Auto) 1 0-10 % Neutrophils # (Auto) 6.3 1.8-7.8 10^3/uL Lymphocytes # (Auto) 1.2 1.0-4.0 10^3/uL Monocytes # (Auto) 0.5 0.0-1.0 10^3/uL Eosinophils # (Auto) 0.0 0.0-0.3 10^3/uL Basophils # (Auto) 0.1 0.0-0.1 10^3/uL Immature Granulocyte # (Auto) 0.1 0.0-0.1 10^3/uL Sodium Level 135 135-145 MMOL/L Potassium Level 4.1 3.6-5.0 MMOL/L Chloride Level 109 H 98-107 MMOL/L Carbon Dioxide Level 13 L 21-32 MMOL/L Anion Gap 13 5-14 MMOL/L Blood Urea Nitrogen 29 H 7-18 MG/DL Creatinine 1.34 H 0.60-1.30 MG/DL Estimat Glomerular Filtration Rate 57 BUN/Creatinine Ratio 22 Glucose Level 155 H 70-105 MG/DL Calcium Level 8.5 8.5-10.1 MG/DL Corrected Calcium 8.7 8.5-10.1 MG/DL Phosphorus Level 2.8 2.3-4.7 MG/DL Magnesium Level 1.8 1.6-2.4 MG/DL Total Bilirubin 0.4 0.1-1.0 MG/DL Aspartate Amino Transf (AST/SGOT) 30 5-34 U/L Alanine Aminotransferase (ALT/SGPT) 24 0-55 U/L Alkaline Phosphatase 72 40-136 U/L Total Protein 6.2 L 6.4-8.2 GM/DL Albumin 3.8 3.2-4.5 GM/DL Beta-Hydroxybutyrate (Chem panel) 0.10 0.00-0.27 MMOL/L Glucometer 158 H 148 H 173 H 70-110 MG/DL Test 05/22/21 03:58 05/22/21 04:50 05/22/21 05:05 05/22/21 05:53 Range/Units Glucometer 170 H 169 H 201 H 70-110 MG/DL Sodium Level 134 L 135-145 MMOL/L Potassium Level 4.3 3.6-5.0 MMOL/L Chloride Level 110 H 98-107 MMOL/L Carbon Dioxide Level 13 L 21-32 MMOL/L Anion Gap 11 5-14 MMOL/L Blood Urea Nitrogen 28 H 7-18 MG/DL Creatinine 1.43 H 0.60-1.30 MG/DL Estimat Glomerular Filtration Rate 53 BUN/Creatinine Ratio 20 Glucose Level 162 H 70-105 MG/DL Calcium Level 8.5 8.5-10.1 MG/DL Test 05/22/21 06:45 05/22/21 08:13 05/22/21 09:20 05/22/21 09:37 Range/Units Glucometer 230 H 242 H 266 H 70-110 MG/DL Sodium Level 132 L 135-145 MMOL/L Potassium Level 4.2 3.6-5.0 MMOL/L Chloride Level 107 98-107 MMOL/L Carbon Dioxide Level 15 L 21-32 MMOL/L Anion Gap 10 5-14 MMOL/L Blood Urea Nitrogen 28 H 7-18 MG/DL Creatinine 1.54 H 0.60-1.30 MG/DL Estimat Glomerular Filtration Rate 49 BUN/Creatinine Ratio 18 Glucose Level 287 H 70-105 MG/DL Calcium Level 8.4 L 8.5-10.1 MG/DL Corrected Calcium 8.7 8.5-10.1 MG/DL Total Bilirubin 0.3 0.1-1.0 MG/DL Aspartate Amino Transf (AST/SGOT) 27 5-34 U/L Alanine Aminotransferase (ALT/SGPT) 25 0-55 U/L Alkaline Phosphatase 71 40-136 U/L Total Protein 6.1 L 6.4-8.2 GM/DL Albumin 3.6 3.2-4.5 GM/DL Test 05/22/21 10:29 05/22/21 11:41 05/22/21 14:09 Range/Units Glucometer 251 H 214 H 70-110 MG/DL Sodium Level 134 L 135-145 MMOL/L Potassium Level 3.8 3.6-5.0 MMOL/L Chloride Level 108 H 98-107 MMOL/L Carbon Dioxide Level 16 L 21-32 MMOL/L Anion Gap 10 5-14 MMOL/L Blood Urea Nitrogen 27 H 7-18 MG/DL Creatinine 1.46 H 0.60-1.30 MG/DL Estimat Glomerular Filtration Rate 52 BUN/Creatinine Ratio 18 Glucose Level 136 H 70-105 MG/DL Calcium Level 8.8 8.5-10.1 MG/DL Corrected Calcium 8.9 8.5-10.1 MG/DL Total Bilirubin 0.3 0.1-1.0 MG/DL Aspartate Amino Transf (AST/SGOT) 28 5-34 U/L Alanine Aminotransferase (ALT/SGPT) 26 0-55 U/L Alkaline Phosphatase 76 40-136 U/L Total Protein 6.5 6.4-8.2 GM/DL Albumin 3.9 3.2-4.5 GM/DL Diagnosis/Problems Diagnosis/Problems (1) Acute on chronic heart failure with preserved ejection fraction (HFpEF) Status: Acute Assessment & Plan: His echocardiogram from this admission shows a normal ejection fraction. However, he was taking carvedilol and lisinopril at home which suggests at some point he may have had left ventricular systolic dysfunction. If his blood pressure and renal function will tolerate these medications, we will resume them. I have requested records from his regular associate pathologist in [place] and am still waiting to receive these. His symptoms are improved and his chest x-ray from 05/21 did not show significant pulmonary edema. He did not particularly report significant dyspnea on admission but apparently, his was telling the emergency room staff otherwise. Nonetheless, today he appears improved. (2) Coronary artery disease without angina pectoris Assessment & Plan: His outside records show a reported history of coronary artery disease. He is not aware of this diagnosis. I will wait to review records from his regular associate pathologist in [place] as outlined above. (3) Primary hypertension Assessment & Plan: His blood pressure is presently controlled on no ant ihypertensive medication. As above, resume his regular outpatient medications when his blood pressure and renal function will tolerate. There is no urgency to resuming these medications since he seems to be remaining normotensive. (4) Mixed hyperlipidemia Assessment & Plan: I have resumed his atorvastatin. His LDL level is at goal on his lipid panel from this admission. (5) Chronic kidney disease, stage 3 Status: Chronic Assessment & Plan: His creatinine has been remaining stable around 1.3-1.4. (6) Obesity Status: Chronic Assessment & Plan: He needs to be counseled on weight loss. NIKA JOHNSON JR, MD May 22, 2021 10:07
[2021-05-22 10:08] LABS: ALBUMIN 3.6 GM/DL (3.2-4.5); BILIRUBIN,TOTAL 0.3 MG/DL (0.1-1.0); CALCIUM 8.4 MG/DL (8.5-10.1); CREATININE SERUM 1.54 MG/DL (0.60-1.30); POTASSIUM 4.2 MMOL/L (3.6-5.0); TOTAL PROTEIN 6.1 GM/DL (6.4-8.2)
--- NOTE | 2021-05-22 10:30 | Tele-ICU Progress Note ---
Subjective Date Seen by a Provider: May 22, 2021 Time Seen by a Provider: 10:30 Sepsis Event Evaluation Height, Weight, BMI Height: '" Weight: lbs. oz. kg; 32.96 BMI Method: Focused Exam Lactate Level 05/20/21 23:04: Lactic Acid Level 3.38*H 05/21/21 02:13: Lactic Acid Level 2.69*H 05/21/21 05:36: Lactic Acid Level 1.90 Exam Exam Patient acknowledged, consented, and participated in this virtual visit which was conducted using real time audio/video Vital Signs Date Time Temp Pulse Resp B/P (MAP) Pulse Ox O2 Delivery O2 Flow Rate FiO2 05/22/21 10:00 96 22 116/70 100 Room Air 05/22/21 09:00 102 27 125/75 100 Room Air 05/22/21 08:00 Room Air 05/22/21 08:00 85 21 99/46 96 Room Air 05/22/21 07:00 87 05/22/21 07:00 86 19 90/53 96 Room Air 05/22/21 06:00 87 27 110/70 99 Room Air 05/22/21 05:00 86 18 110/69 97 Room Air 05/22/21 04:00 35.7 05/22/21 04:00 93 35 98/80 98 Room Air 05/22/21 04:00 98 Room Air 05/22/21 03:03 90 24 109/100 93 Room Air 05/22/21 02:00 85 17 127/79 97 Room Air 05/22/21 01:03 100 31 140/79 100 Room Air 05/22/21 01:00 111 05/22/21 00:00 96 25 110/70 97 Room Air 05/22/21 00:00 36.0 05/21/21 23:59 98 Room Air 05/21/21 23:00 99 20 121/62 97 Room Air 05/21/21 22:03 99 23 127/90 100 Room Air 05/21/21 20:06 100 39 122/84 98 Room Air 05/21/21 20:00 98 Room Air 05/21/21 19:29 36.2 05/21/21 19:00 101 19 134/101 96 Room Air 05/21/21 19:00 101 05/21/21 18:00 102 17 126/81 99 Room Air 05/21/21 17:00 98 28 92/61 97 Room Air 05/21/21 16:00 96 27 127/92 98 Room Air 05/21/21 15:44 36.2 05/21/21 15:42 99 Room Air 05/21/21 15:00 98 28 132/93 100 Room Air 05/21/21 14:00 95 11 124/80 99 Room Air 05/21/21 13:00 94 05/21/21 13:00 94 26 133/100 100 Room Air 05/21/21 12:15 98 Room Air 05/21/21 12:15 91 25 136/82 93 05/21/21 12:00 91 23 91/77 98 Room Air 05/21/21 11:45 94 17 131/81 99 05/21/21 11:30 94 22 138/90 98 05/21/21 11:15 106 25 127/86 88 05/21/21 11:00 88 8 143/96 99 Room Air 05/21/21 10:45 89 11 128/79 95 I & O 05/22/21 07:00 Intake Total 580 ml Output Total 450 ml Balance 130 ml Height & Weight Height: '" Weight: lbs. oz. kg; 32.96 BMI Method: General Appearance: No Apparent Distress, Obese HEENT: PERRL/EOMI, Pharynx Normal Neck: Normal Inspection, Supple Respiratory: Lungs Clear, Normal Breath Sounds, No Respiratory Distress Cardiovascular: No Murmur, Tachycardia Extremity: Normal Inspection, Non Tender, Pedal Edema (1+ pitting edema bilaterally) Neurologic/Psychiatric: Alert, No Motor/Sensory Deficits, Other (flat affect) Skin: Warm/Dry, Petechia (bilateral shins) Results Lab Laboratory Tests 05/20/21 21:35 05/20/21 22:25 05/20/21 22:55 05/21/21 02:13 05/21/21 05:36 05/21/21 10:25 05/21/21 16:21 05/21/21 21:18 05/22/21 00:55 05/22/21 04:50 05/22/21 09:20 Assessment/Plan Assessment/Plan Tele-ICU Physician , Progress Note ) Available chart/ vitals / labs / Images reviewed Video assessment done using teleICU camera, rest of exam as per RN Discussed with RN , EXAM PER RN Events overnight : Afebrile FiO2 - I/O = Drips: Pressors: , hemodynamically stable Consultants: leonor Hospital course: 05/21 - transfer fropm other hosp with DKA , CHIARA , diarrhea A/P DKA - in insulin gtt - follow labs- close to d/c , starting long acting CHIARA - good UO - follow - baseline unknown - ? need US if no improvement - avoid nephrotoxic meds Diarrhea , reported - as per Dr Barksdale ( sx ) - no w/up needed - as per sx : conservativer management - cont abx h/o CAD, CM - crds consulted , - ECHO EF 55% ID - in ceftriaxine - UA neg - cx pending Lines : (Central Line Necessity Reviewed) Pisano: + OG: Nutrition: Analgesia: Anxiety/ delirium VTE Prophylaxis: Stress Ulcer Prophylaxis: hep sq Plans in collaboration with bedside consultants and IM MDs. Discussed with RN to reach out if any questions or concerns A total of 32 minutes of critical care time was devoted to this patient today, required to treat and/or prevent further deterioration of critical care condition ( as above ) . VERA DELGADO MD May 22, 2021 10:30
[2021-05-22] MEDS: inSUlin ASPART (NovoLOG) 1 UNIT/0.01 ML (CHARGE PER UNIT) SC SCH ×5 (10:36→20:01)
--- NOTE | 2021-05-22 12:59 | Progress Note - Hospitalist ---
VERONIKA MARRERO A MED STUDENT 05/22/21 1259: Subjective HPI/CC On Admission Date Seen by Provider: May 22, 2021 Time Seen by Provider: 08:15 This is a 71 yo male who was admitted from [facility] for DKA and sepsis. Pt has hx of diabetes, dementia, CAD, cardiomyopathy, HTN, hyperlipidemia, hypothyroidism, JANI and arthritis being treated with methotrexate. Pt is a poor historian d/t dementia and this information is based off his interview. Pt reports he was having diarrhea, cough, SOA when lying flat and poor appetite for the last five days. Pt also reports his shins have been itchy and red recently. Pt denies any current fever, chills, N/V, chest pain, SOA. Pt reports he was taking trulicity up until a month ago and is unsure of what he takes now. He did state he takes methotrexate for arthritis. Pt follows up for GERD with Dr. Moreira at [facility] and reports he sees him every six months to have his "esophagus stretche d". Pt reports his last colonoscopy and EGD were six months ago. Subjective/Events-last exam Pt was up eating breakfast this morning, reports good appetite. Pt denies fever, chills, SOA, cough, chest pain, N/V/D. Pt has no concerns today. Review of Systems General: No Chills, No Fatigue HEENT: No Head Aches, No Visual Changes Pulmonary: No Dyspnea, No Cough Cardiovascular: No: Chest Pain, Palpitations Gastrointestinal: No: Nausea, Vomiting Genitourinary: No Dysuria, No Frequency Neurological: No: Weakness, Numbness Focused Exam Lactate Level 05/20/21 23:04: Lactic Acid Level 3.38*H 05/21/21 02:13: Lactic Acid Level 2.69*H 05/21/21 05:36: Lactic Acid Level 1.90 Objective Exam Vital Signs Vital Signs Date Time Temp Pulse Resp B/P (MAP) Pulse Ox O2 Delivery O2 Flow Rate FiO2 05/22/21 12:39 94 05/22/21 12:00 21 129/85 95 Room Air 05/22/21 04:00 35.7 Capillary Refill : General Appearance: No Apparent Distress, WD/WN HEENT: PERRL/EOMI Respiratory: Chest Non Tender, Decreased Breath Sounds (slightly diminished breath sounds at bases bilaterally) Cardiovascular: Regular Rate, Rhythm, No Murmur Gastrointestinal: Normal Bowel Sounds, Non Tender, Soft Extremity: Normal Capillary Refill, Pedal Edema (mild non-pitting edema) Neurologic/Psychiatric: Alert, Normal Mood/Affect, Disoriented Skin: Warm/Dry, Petechia (bilateral shins) Results/Procedures Lab Laboratory Tests 05/21/21 16:21 05/21/21 21:18 05/22/21 00:55 05/22/21 04:50 05/22/21 09:20 Patient resulted labs reviewed. Imaging: Reviewed Imaging Report Assessment/Plan Assessment and Plan Assess & Plan/Chief Complaint This is a 71 yo male who is admitted for DKA and Sepsis d/t colitis and prostatitis. DKA -Insulin drip stopped -Dextrose/NaCl at 100ml/hr stopped -.45% NaCl stopped -Transition to SC insulin -K+ stopped -Move to general medical floor today Sepsis d/t colitis and prostatitis -CT from [place] showed colitis and prostatitis -Surgery consulted, appreciate their recommendations Acute on chronic heart failure -Cardiology consulted, appreciate their recommendations -Elevated BNP and troponin -CXR showed cardiomegaly and central pulmonary venous congestion -Echo showed EF of 55%-60% Coronary artery disease HTN Hyperlipidemia Acute kidney injury with CKD 3 Obesity BETTYE COLEMAN MD 05/22/21 1923: Subjective HPI/CC On Admission Time Seen by Provider: 09:50 Assessment/Plan Assessment and Plan Assess & Plan/Chief Complaint Admitted with DKA. Anion gap closed. Transition off insulin gtt. Begin basal/bolus insulin. Diabetes education ordered. Colitis symptoms improved. Continue steroids and antibiotics. Will need outpatient colonoscopy. Diagnosis/Problems Diagnosis/Problems (1) DKA (diabetic ketoacidosis) Status: Acute Qualifiers: Qualified Codes: E11.10 - Type 2 diabetes mellitus with ketoacidosis without coma (2) Type 2 diabetes mellitus with complication Status: Acute (3) Metabolic acidosis Status: Acute (4) Colitis Status: Acute (5) Acute on chronic heart failure with preserved ejection fraction (HFpEF) Status: Acute Supervisory-Addendum Brief Verification & Attestation Participated in pt care: history, MDM, physical Personally performed: exam, history, MDM, supervision of care Care discussed with: Medical Student Procedures: n/a Results interpretation: Verified all documentation A medical student performed and documented this service in my presence. I reviewed and verified all information documented by the medical student and made modifications to such information, when appropriate. I personally performed the physical exam and medical decision making. VERONIKA MARRERO MED STUDENT May 22, 2021 12:59 BETTYE COLEMAN MD May 22, 2021 19:23
--- NOTE | 2021-05-22 13:37 | Progress Note ---
Subjective Date Seen by a Provider: May 22, 2021 Time Seen by a Provider: 13:00 Subjective/Events-last exam doing better. less episodes diarrhea. minimal abd pain. no fever/chills. Focused Exam Lactate Level 05/20/21 23:04: Lactic Acid Level 3.38*H 05/21/21 02:13: Lactic Acid Level 2.69*H 05/21/21 05:36: Lactic Acid Level 1.90 Objective Exam Vital Signs Date Time Temp Pulse Resp B/P (MAP) Pulse Ox O2 Delivery O2 Flow Rate FiO2 05/22/21 13:00 90 29 107/68 99 Room Air 05/22/21 12:39 94 05/22/21 12:00 101 21 129/85 95 Room Air 05/22/21 11:00 95 18 126/85 99 Room Air 05/22/21 10:00 96 22 116/70 100 Room Air 05/22/21 09:00 102 27 125/75 100 Room Air 05/22/21 08:00 Room Air 05/22/21 08:00 85 21 99/46 96 Room Air 05/22/21 07:00 87 05/22/21 07:00 86 19 90/53 96 Room Air 05/22/21 06:00 87 27 110/70 99 Room Air 05/22/21 05:00 86 18 110/69 97 Room Air 05/22/21 04:00 35.7 05/22/21 04:00 93 35 98/80 98 Room Air 05/22/21 04:00 98 Room Air 05/22/21 03:03 90 24 109/100 93 Room Air 05/22/21 02:00 85 17 127/79 97 Room Air 05/22/21 01:03 100 31 140/79 100 Room Air 05/22/21 01:00 111 05/22/21 00:00 96 25 110/70 97 Room Air 05/22/21 00:00 36.0 05/21/21 23:59 98 Room Air 05/21/21 23:00 99 20 121/62 97 Room Air 05/21/21 22:03 99 23 127/90 100 Room Air 05/21/21 20:06 100 39 122/84 98 Room Air 05/21/21 20:00 98 Room Air 05/21/21 19:29 36.2 05/21/21 19:00 101 19 134/101 96 Room Air 05/21/21 19:00 101 05/21/21 18:00 102 17 126/81 99 Room Air 05/21/21 17:00 98 28 92/61 97 Room Air 05/21/21 16:00 96 27 127/92 98 Room Air 05/21/21 15:44 36.2 05/21/21 15:42 99 Room Air 05/21/21 15:00 98 28 132/93 100 Room Air 05/21/21 14:00 95 11 124/80 99 Room Air I & O 05/22/21 07:00 Intake Total 580 ml Output Total 450 ml Balance 130 ml Capillary Refill : General Appearance: No Apparent Distress HEENT: PERRL/EOMI Neck: Full Range of Motion Respiratory: Chest Non Tender, Normal Breath Sounds Cardiovascular: Regular Rate, Rhythm Gastrointestinal: normal bowel sounds, non tender, soft Neurologic/Psychiatric: Alert, Oriented x3 Skin: Normal Color Results Lab Laboratory Tests 05/21/21 13:54: Glucometer 137H 05/21/21 14:57: Glucometer 133H 05/21/21 15:58: Glucometer 123H 05/21/21 16:21: Sodium Level 136, Potassium Level 3.4L, Chloride Level 106, Carbon Dioxide Level 14L, Anion Gap 16H, Blood Urea Nitrogen 36H, Creatinine 1.57H, Estimat Glomerular Filtration Rate 47, BUN/Creatinine Ratio 23, Glucose Level 119H, Calcium Level 8.8, Triglycerides Level 249H, Cholesterol Level 108, LDL Cholesterol Direct 49, VLDL Cholesterol 50H, HDL Cholesterol 25L 05/21/21 16:56: Glucometer 141H 05/21/21 18:02: Glucometer 149H 05/21/21 18:46: Glucometer 177H 05/21/21 19:58: Glucometer 228H 05/21/21 20:48: Glucometer 196H 05/21/21 21:18: Sodium Level 135, Potassium Level 3.7, Chloride Level 106, Carbon Dioxide Level 15L, Anion Gap 14, Blood Urea Nitrogen 32H, Creatinine 1.44H, Estimat Glomerular Filtration Rate 53, BUN/Creatinine Ratio 22, Glucose Level 172H, Calcium Level 8.6 05/21/21 21:53: Glucometer 164H 05/21/21 22:49: Glucometer 171H 05/21/21 23:57: Glucometer 155H 05/22/21 00:55: White Blood Count 8.1, Red Blood Count 4.96, Hemoglobin 14.2, Hematocrit 42, Mean Corpuscular Volume 84, Mean Corpuscular Hemoglobin 29, Mean Corpuscular Hemoglobin Concent 34, Red Cell Distribution Width 16.2H, Platelet Count 206, Mean Platelet Volume 10.1, Immature Granulocyte % (Auto) 2, Neutrophils (%) (Auto) 77H, Lymphocytes (%) (Auto) 15, Monocytes (%) (Auto) 6, Eosinophils (%) (Auto) 0, Basophils (%) (Auto) 1, Neutrophils # (Auto) 6.3, Lymphocytes # (Auto) 1.2, Monocytes # (Auto) 0.5, Eosinophils # (Auto) 0.0, Basophils # (Auto) 0.1, Immature Granulocyte # (Auto) 0.1, Sodium Level 135, Potassium Level 4.1, Chloride Level 109H, Carbon Dioxide Level 13L, Anion Gap 13, Blood Urea Nitrogen 29H, Creatinine 1.34H, Estimat Glomerular Filtration Rate 57, BUN/Creatinine Ratio 22, Glucose Level 155H, Calcium Level 8.5, Corrected Calcium 8.7, Phosphorus Level 2.8, Magnesium Level 1.8, Total Bilirubin 0.4, Aspartate Amino Transf (AST/SGOT) 30, Alanine Aminotransferase (ALT/SGPT) 24, Alkaline Phosphatase 72, Total Protein 6.2L, Albumin 3.8, Beta-Hydroxybutyrate (Chem panel) 0.10 05/22/21 01:01: Glucometer 158H 05/22/21 01:54: Glucometer 148H 05/22/21 03:03: Glucometer 173H 05/22/21 03:58: Glucometer 170H 05/22/21 04:50: Sodium Level 134L, Potassium Level 4.3, Chloride Level 110H, Carbon Dioxide Level 13L, Anion Gap 11, Blood Urea Nitrogen 28H, Creatinine 1.43H, Estimat Glomerular Filtration Rate 53, BUN/Creatinine Ratio 20, Glucose Level 162H, Calcium Level 8.5 05/22/21 05:05: Glucometer 169H 05/22/21 05:53: Glucometer 201H 05/22/21 06:45: Glucometer 230H 05/22/21 08:13: Glucometer 242H 05/22/21 09:20: Sodium Level 132L, Potassium Level 4.2, Chloride Level 107, Carbon Dioxide Level 15L, Anion Gap 10, Blood Urea Nitrogen 28H, Creatinine 1.54H, Estimat Glomerular Filtration Rate 49, BUN/Creatinine Ratio 18, Glucose Level 287H, Calcium Level 8.4L, Corrected Calcium 8.7, Total Bilirubin 0.3, Aspartate Amino Transf (AST/SGOT) 27, Alanine Aminotransferase (ALT/SGPT) 25, Alkaline Phosphatase 71, Total Protein 6.1L, Albumin 3.6 05/22/21 09:37: Glucometer 266H 05/22/21 10:29: Glucometer 251H Microbiology 05/21/21 Urine Culture - Final, Complete NO GROWTH 05/21/21 C. difficile GDH Antigen & Toxins - Final, Complete 05/20/21 MRSA Screen - Final, Complete MRSA not isolated Assessment/Plan Assessment/Plan Assess & Plan/Chief Complaint ulcerative colitis flare-up, diarrhea, dehydration, hypergycemia. cont steroids, will need a PO taper upon discharge. diet as tolerated. HARI NG MD May 22, 2021 13:37
[2021-05-22 14:36] LABS: ALBUMIN 3.9 GM/DL (3.2-4.5); BILIRUBIN,TOTAL 0.3 MG/DL (0.1-1.0); CALCIUM 8.8 MG/DL (8.5-10.1); CREATININE SERUM 1.46 MG/DL (0.60-1.30); POTASSIUM 3.8 MMOL/L (3.6-5.0); TOTAL PROTEIN 6.5 GM/DL (6.4-8.2)
[2021-05-22] MEDS ORDERED: ENOXAPARIN 40 MG/0.4 ML (LOVENOX) SYR SC SCH (19:00)
[2021-05-22] MEDS ORDERED: predniSONE 20 MG TAB PO NR (19:00)
[2021-05-22] MEDS: cefTRIAXone 2,000 MG in NS (IVPB) 50 ML IV SCH (19:44)
[2021-05-23 04:42] LABS: BASOPHILS % (AUTO) 0 % (0-10); EOSINOPHILS % (AUTO) 0 % (0-10); HEMATOCRIT 39 % (40-54); HEMOGLOBIN 13.3 g/dL (13.3-17.7); LYMPHOCYTES # (AUTO) 1.8 10^3/uL (1.0-4.0); LYMPHOCYTES % (AUTO) 17 % (12-44); MEAN CORPUSCULAR HEMOGLOBIN 29 pg (25-34); MEAN CORPUSCULAR HGB CONC 34 g/dL (32-36); MEAN CORPUSCULAR VOLUME 85 fL (80-99); MEAN PLATELET VOLUME 10.2 fL (9.0-12.2); MONOCYTES # (AUTO) 0.6 10^3/uL (0.0-1.0); MONOCYTES % (AUTO) 6 % (0-12); NEUTROPHILS # (AUTO) 7.8 10^3/uL (1.8-7.8); NEUTROPHILS % (AUTO) 74 % (42-75); PLATELET COUNT 212 10^3/uL (130-400); WHITE BLOOD COUNT 10.5 10^3/uL (4.3-11.0)
[2021-05-23 05:00] LABS: ALBUMIN 3.5 GM/DL (3.2-4.5)
[2021-05-23 05:01] LABS: CALCIUM 8.1 MG/DL (8.5-10.1)
[2021-05-23 05:02] LABS: TOTAL PROTEIN 5.7 GM/DL (6.4-8.2)
[2021-05-23 05:04] LABS: BILIRUBIN,TOTAL 0.4 MG/DL (0.1-1.0)
[2021-05-23 05:06] LABS: CREATININE SERUM 1.38 MG/DL (0.60-1.30); PHOSPHORUS 3.2 MG/DL (2.3-4.7)
[2021-05-23 05:09] LABS: MAGNESIUM 1.9 MG/DL (1.6-2.4)
[2021-05-23] MEDS: inSUlin ASPART (NovoLOG) 1 UNIT/0.01 ML (CHARGE PER UNIT) SC SCH ×3 (06:23→11:48)
[2021-05-23] MEDS ORDERED: predniSONE 20 MG TAB PO SCH (07:00)
[2021-05-23] MEDS: metroNIDAZOLE 500MG/100ML IVPB 100 ML IV SCH (08:09)
[2021-05-23] MEDS: SODIUM BICARBONATE 650 MG TABLET (NON-FORMULARY) PO SCH ×2 (08:09→11:48)
--- NOTE | 2021-05-23 09:48 | Physical Therapy Evaluation ---
PT Evaluation-General Medical Diagnosis Admission Date May 20, 2021 at 21:02 Medical Diagnosis: DKA, sepsis Onset Date: May 20, 2021 Therapy Diagnosis Therapy Diagnosis: impaired mobility, endurance Precautions Precautions/Isolations: Fall Prevention, Standard Precautions Referral Physician: Jere Reason for Referral: Evaluation/Treatment Medical History Pertinent Medical History: CAD, Heart Failure Reviewed History: Yes Social History Home: Single Level Current Living Status: Spouse PT Steps Into Home: 3 Prior Prior Level of Function SCALE: Activities may be completed with or without assistive devices. 1-Jrqmhiysuo-uvktqwa completes the activity by him/herself with no assistance from a helper. 5-Set-up or Clean-up Assistance-helper sets up or cleans up; patient completes activity. [place] assists only prior to or following the activity. 4-Supervision or Touching Assistance-helper provides verbal cues and/or touching/steadying and/or contact guard assistance as patient completes activity. Assistance may be provided throughout the activity or intermittently. 3-Partial/Moderate Assistance-helper does LESS THAN HALF the effort. [place] lifts, holds or supports trunk or limbs, but provides less than half the effort. 2-Substantial/Maximal Assistance-helper does MORE THAN HALF the effort. [place] lifts or holds trunk or limbs and provides more than half the effort. 1-Pmwxuvnyr-ucciaw does ALL the effort. Patient does none of the effort to complete the activity. Or, the assistance of 2 or more helpers is required for the patient to complete the activity. If activity was not attempted, code reason: 7-Patient Refused. 9-Not Applicable-not attempted and the patient did not perform the activity before the current illness, exacerbation or injury. 10-Not Attempted due to Environmental Limitations-(lack of equipment, weather restraints, etc.). 88-Not Attempted due to Medical Conditions or Safety Concerns. Bed Mobility: 6 Transfers (B,C,W/C): 6 Gait: 6 Stairs: 6 Indoor Mobility (Ambulation): Independent Stairs: Independent PT Evaluation-Current Subjective Patient in bed pre tx, agrees to PT, has no complaints of pain. Pt/Family Goals to be independent at home Objective Patient Orientation: Person, Place, [place] ROM/Strength ROM Lower Extremities WNL except doesn't have full knee extension on the right side Strength Lower Extremities BLE grossly 4+/5 Sensory Hearing: Functional Sensation Right Lower Extremit: Intact Sensation Left Lower Extremity: Intact Transfers Roll Left to Right (QC): 6 Lying to Sitting/Side of Bed(Q: 6 Sit to Stand (QC): 4 Chair/Wkj-ir-Danfu Xfer(QC): 4 Gait Does the Patient Walk?: Yes Mode of Locomotion: Walk Anticipated Mode of Locomotion: Walk Walk 10 feet (QC): 4 Walk 50 ft with 2 Turns(QC): 4 Distance: 100' Gait Assistive Device: None Comments/Gait Description SBA, slow but steady ambulation Balance Sitting Static: Normal Sitting Dynamic: Normal Standing Static: Good Standing Dynamic: Good Treatment BLE seated exercises x20 (AP, LAQ) Assessment/Needs Patient in recliner post tx with nurse call, phone, tray, all needs met. Patient has impaired mobility and endurance. Just needs SBA for transfers and ambulation. Rehab Potential: Fair PT Associate Director Of Nursing Goals Associate Director Of Nursing Goals PT Associate Director Of Nursing Goals Time Frame: May 30, 2021 Roll Left & Right (QC): 6 Sit to Lying (QC): 6 Lying-Sitting on Side/Bed(QC): 6 Sit to Stand (QC): 6 Chair/Lml-zy-Lyave Xfer(QC): 6 Walk 10 feet (QC): 6 Walk 50ft with 2 Turns (QC): 6 Walk 150 ft (QC): 6 1 Step (curb) (QC): 6 4 Steps (QC): 6 PT Plan Problem List Problem List: Activity Tolerance, Functional Strength, Safety, Balance, Gait, Transfer, ROM Treatment/Plan Treatment Plan: Continue Plan of Care Treatment Duration: May 30, 2021 Frequency: 6 times per week Estimated Hrs Per Day: .25 hour per day Patient and/or Family Agrees t: Yes Safety Risks/Education Patient Education: Gait Training, Transfer Techniques, Correct Positioning, Safety Issues Teaching Recipient: Patient Teaching Methods: Demonstration, Discussion Response to Teaching: Reinforcement Needed Discharge Recommendations Plan Patient will perform bed mobility and transfer training, balance and endurance training, functional strengthening, stair training, gait training, and education, to improve functional mobility and independence at home. Therapy Discharge Recommendati: Home & Family Time/GCodes Time In: 909 Time Out: 918 Total Billed Treatment Time: 9 Total Billed Treatment 1 visit EVL Barron' RADHA ROTH PT May 23, 2021 09:48
--- NOTE | 2021-05-23 09:53 | Tele-ICU Progress Note ---
Subjective Date Seen by a Provider: May 23, 2021 Time Seen by a Provider: 09:53 Sepsis Event Evaluation Height, Weight, BMI Height: '" Weight: lbs. oz. kg; 32.96 BMI Method: Focused Exam Lactate Level 05/20/21 23:04: Lactic Acid Level 3.38*H 05/21/21 02:13: Lactic Acid Level 2.69*H 05/21/21 05:36: Lactic Acid Level 1.90 Exam Exam Patient acknowledged, consented, and participated in this virtual visit which was conducted using real time audio/video Vital Signs Date Time Temp Pulse Resp B/P (MAP) Pulse Ox O2 Delivery O2 Flow Rate FiO2 05/23/21 08:33 92 25 130/83 97 Room Air 05/23/21 08:09 Room Air 05/23/21 07:51 35.9 05/23/21 07:47 94 05/23/21 04:00 36.7 87 19 121/78 95 Room Air 05/23/21 01:00 94 05/22/21 23:20 37.3 94 18 121/70 97 Room Air 05/22/21 20:00 96 Room Air 05/22/21 20:00 96 20 Room Air 05/22/21 19:40 36.4 96 20 142/89 99 Room Air 05/22/21 19:00 95 05/22/21 17:00 874 22 116/71 96 Room Air 05/22/21 17:00 Room Air 05/22/21 16:00 89 24 110/72 97 Room Air 05/22/21 15:00 98 35 100/70 98 Room Air 05/22/21 14:00 109 36 126/79 100 Room Air 05/22/21 13:00 90 29 107/68 99 Room Air 05/22/21 12:39 94 05/22/21 12:00 Room Air 05/22/21 12:00 101 21 129/85 95 Room Air 05/22/21 11:00 95 18 126/85 99 Room Air 05/22/21 10:00 96 22 116/70 100 Room Air I & O 05/23/21 07:00 Intake Total 2250 ml Output Total 428 ml Balance 1822 ml Height & Weight Height: '" Weight: lbs. oz. kg; 32.96 BMI Method: General Appearance: No Apparent Distress, Obese HEENT: PERRL/EOMI, Pharynx Normal Neck: Normal Inspection, Supple Respiratory: Lungs Clear, Normal Breath Sounds, No Respiratory Distress Cardiovascular: No Murmur, Tachycardia Capillary Refill: Less Than 3 Seconds Gastrointestinal: normal bowel sounds, non tender, soft Extremity: Normal Inspection, Non Tender, Pedal Edema (1+ pitting edema bilaterally) Neurologic/Psychiatric: Alert, No Motor/Sensory Deficits, Other (flat affect) Skin: Warm/Dry, Petechia (bilateral shins) Results Lab Laboratory Tests 05/21/21 10:25 05/21/21 16:21 05/21/21 21:18 05/22/21 00:55 05/22/21 04:50 05/22/21 09:20 05/22/21 14:09 05/23/21 04:11 Assessment/Plan Assessment/Plan (Tele-ICU Physician , Progress Note ) Available chart/ vitals / labs / Images reviewed Video assessment done using teleICU camera, rest of exam as per RN Discussed with RN , EXAM PER RN Events overnight : Afebrile FiO2 - I/O = pos Drips: Pressors: , hemodynamically stable Consultants: leonor Hospital course: 05/21 - transfer fropm other hosp with DKA , CHIARA , diarrhea 05/23 - diarrhea resobed , off insulin gtt A/P DKA - in insulin gtt OFF , on long acting - follow labs , still has acidosis CHIARA - good UO - follow - baseline unknown - avoid nephrotoxic meds Diarrhea , reported - ? w/up in other facility done - as per PCP h/o CAD, CM - crds consulted , - ECHO ef 55% ID - in ceftriaxine - UA neg - cx pending Lines : (Central Line Necessity Reviewed) [place]: + OG: Nutrition: Analgesia: Anxiety/ delirium VTE Prophylaxis: migule 40 Stress Ulcer Prophylaxis: hep sq Plans in collaboration with bedside consultants and IM MDs. Discussed with RN to reach out if any questions or concerns A total of 32 minutes of critical care time was devoted to this patient today, required to treat and/or prevent further deterioration of critical care condition ( as above ) . VERA DELGADO MD May 23, 2021 09:53
--- NOTE | 2021-05-23 10:05 | Cardiology Progress Note ---
Progress Note-Cardiology Events since last exam Date Seen by Provider: May 23, 2021 Time Seen by Provider: 10:04 Events since last exam I am following him due to heart failure. He normally follows with a cardiol ogist at [facility]. He was sitting up in a chair. He denied shortness of breath at rest, chest pain, palpitations, syncope, or ankle edema. Certain portions of this document may have been dictated utilizing voice recognition technology. Inherent to this technology, typographical and grammatical errors may exist. As much as I am diligent to identify and correct these mistakes, some errors may remain in the document. Vitals Last set of Vitals Signs Vital Signs 05/23/21 05/23/21 08:33 11:44 Temp 36.2 Pulse 92 Resp 25 B/P (MAP) 130/83 Pulse Ox 97 O2 Delivery Room Air Labs Labs Laboratory Tests 05/23/21 04:11 Exam Vital Signs Vital Signs Date Time Temp Pulse Resp B/P (MAP) Pulse Ox O2 Delivery O2 Flow Rate FiO2 05/23/21 13:09 05/23/21 11:44 36.2 05/23/21 08:33 92 25 97 Room Air Physical Exam General: Alert. No acute distress. Eye: No xanthelasma. HENT: Normocephalic. Neck: Jugular venous pressure does not appear elevated. Respiratory: Lungs are clear to auscultation. Respirations are non-labored. Breath sounds are equal. Symmetrical chest wall expansion. Cardiovascular: Normal rate. Regular rhythm. No murmur. No gallop. No edema. Gastrointestinal: Soft. Normal bowel sounds. Skin: Warm. Dry. Neurologic: Alert and oriented to person, place, time. Cranial nerves 3-11 gross ly intact. Psychiatric: Cooperative. Appropriate mood & affect. Labs Laboratory Tests Test 05/22/21 18:09 05/22/21 19:53 05/22/21 21:04 05/23/21 04:11 Range/Units Glucometer 148 H 225 H 70-110 MG/DL White Blood Count 10.5 4.3-11.0 10^3/uL Red Blood Count 4.65 4.30-5.52 10^6/uL Hemoglobin 13.3 13.3-17.7 g/dL Hematocrit 39 L 40-54 % Mean Corpuscular Volume 85 80-99 fL Mean Corpuscular Hemoglobin 29 25-34 pg Mean Corpuscular Hemoglobin Concent 34 32-36 g/dL Red Cell Distribution Width 16.2 H 10.0-14.5 % Platelet Count 212 130-400 10^3/uL Mean Platelet Volume 10.2 9.0-12.2 fL Immature Granulocyte % (Auto) 3 % Neutrophils (%) (Auto) 74 42-75 % Lymphocytes (%) (Auto) 17 12-44 % Monocytes (%) (Auto) 6 0-12 % Eosinophils (%) (Auto) 0 0-10 % Basophils (%) (Auto) 0 0-10 % Neutrophils # (Auto) 7.8 1.8-7.8 10^3/uL Lymphocytes # (Auto) 1.8 1.0-4.0 10^3/uL Monocytes # (Auto) 0.6 0.0-1.0 10^3/uL Eosinophils # (Auto) 0.0 0.0-0.3 10^3/uL Basophils # (Auto) 0.0 0.0-0.1 10^3/uL Immature Granulocyte # (Auto) 0.3 H 0.0-0.1 10^3/uL Sodium Level 133 L 135-145 MMOL/L Potassium Level 4.0 3.6-5.0 MMOL/L Chloride Level 107 98-107 MMOL/L Carbon Dioxide Level 14 L 21-32 MMOL/L Anion Gap 12 5-14 MMOL/L Blood Urea Nitrogen 28 H 7-18 MG/DL Creatinine 1.38 H 0.60-1.30 MG/DL Estimat Glomerular Filtration Rate 55 BUN/Creatinine Ratio 20 Glucose Level 265 H 70-105 MG/DL Calcium Level 8.1 L 8.5-10.1 MG/DL Corrected Calcium 8.5 8.5-10.1 MG/DL Phosphorus Level 3.2 2.3-4.7 MG/DL Magnesium Level 1.9 1.6-2.4 MG/DL Total Bilirubin 0.4 0.1-1.0 MG/DL Aspartate Amino Transf (AST/SGOT) 25 5-34 U/L Alanine Aminotransferase (ALT/SGPT) 23 0-55 U/L Alkaline Phosphatase 67 40-136 U/L Total Protein 5.7 L 6.4-8.2 GM/DL Albumin 3.5 3.2-4.5 GM/DL Beta-Hydroxybutyrate (Chem panel) 0.33 H 0.00-0.27 MMOL/L Test 05/23/21 09:33 Range/Units Glucometer 298 H 70-110 MG/DL Diagnosis/Problems Diagnosis/Problems (1) Acute on chronic heart failure with preserved ejection fraction (HFpEF) Status: Acute Assessment & Plan: His echocardiogram from this admission shows a normal ejection fraction. I did see an echocardiogram from 2019 and this showed mild left ventricular systolic dysfunction with an ejection fraction of 45%. He was taking carvedilol and lisinopril. We had not resumed his carvedilol or lisinopril here due to borderline low blood pressures. Requested records from [facility] but I do not see that we ever received these. His symptoms are improved and his chest x-ray from 05/21 did not show significant pulmonary edema. He did not particularly report significant dyspnea on admission but apparently, his was telling the emergency room staff otherwise. Nonetheless, today he appears improved. From a cardiac standpoint, he can be discharged home. I recommend he follow-up with his regular forming tube selector in [place] after discharge. (2) Coronary artery disease without angina pectoris Assessment & Plan: His outside records show a reported history of coronary artery disease. He is not aware of this diagnosis. I was able to review the em ergency room records from the outside facility prior to his transfer here, but still did not see any records from his regular forming tube selector in [place]. (3) Primary hypertension Assessment & Plan: His blood pressure is presently controlled on no antihypertensive medication. As above, resume his regular outpatient medications when his blood pressure and renal function will tolerate. There is no urgency to resuming these medications since he seems to be remaining normotensive. (4) Mixed hyperlipidemia Assessment & Plan: I have resumed his atorvastatin. His LDL level is at goal on his lipid panel from this admission. (5) Chronic kidney disease, stage 3 Status: Chronic Assessment & Plan: His creatinine has been remaining stable around 1.3-1.4. (6) Obesity Status: Chronic Assessment & Plan: He needs to be counseled on weight loss. NIKA JOHNSON JR, MD May 23, 2021 10:05
--- NOTE | 2021-05-23 10:49 | Occupational Therapy Eval ---
OT Evaluation-General/PLF Medical Diagnosis Admission Date May 20, 2021 at 21:02 Medical Diagnosis: DKA, sepsis Onset Date: May 20, 2021 Therapy Diagnosis Therapy Diagnosis: n/a Precautions Precautions/Isolations: Fall Prevention, Standard Precautions Referral Physician: Jere Robles Reason: Evaluation/Treatment Medical History Pertinent Medical History: CAD, Heart Failure Additional Medical History DM, dementia, CAD, cardiomyopathy, HTN, hyperlipidemia,k hypothyroidism, JANI, arthritis, GERD Current History admit from [place] ED for DKA and sepsis, diarrhea, coughing, SOA when laying flat and poor appetite. Social History Home: Single Level Current Living Status: Spouse Steps Into Home: 3 ADL-Prior Level of Function SCALE: Activities may be completed with or without assistive devices. 0-Kbvshohedr-injzazy completes the activity by him/herself with no assistance f rom a helper. 5-Set-up or Clean-up Assistance-helper sets up or cleans up; patient completes activity. [place] assists only prior to or following the activity. 4-Supervision or Touching Assistance-helper provides verbal cues and/or touching/steadying and/or contact guard assistance as patient completes activity. Assistance may be provided throughout the activity or intermittently. 3-Partial/Moderate Assistance-helper does LESS THAN HALF the effort. [place] lifts, holds or supports trunk or limbs, but provides less than half the effort. 2-Substantial/Maximal Assistance-helper does MORE THAN HALF the effort. [place] lifts or holds trunk or limbs and provides more than half the effort. 0-Myjobspjy-sxsjjt does ALL the effort. Patient does none of the effort to complete the activity. Or, the assistance of 2 or more helpers is required for the patient to complete the activity. If activity was not attempted, code reason: 7-Patient Refused. 9-Not Applicable-not attempted and the patient did not perform the activity before the current illness, exacerbation or injury. 10-Not Attempted due to Environmental Limitations-(lack of equipment, weather restraints, etc.). 88-Not Attempted due to Medical Conditions or Safety Concerns. ADL PLOF Comments Pt reports IND with ADLs and functional mobility, no AD. Self Care: Independent Functional Cognition: Independent OT Current Status Subjective Pt in recliner, states he is hoping to discharge today. Mental Status/Objective Patient Orientation: Person, Place, Situation Current Upper Extremity ROM WFL Upper Extremity Strength WFL ADL-Treatment Eating (QC): 6 (Per pt report.) Lower Body Dressing (QC): 6 (IND ) Toileting Hygiene (QC): 6 (IND per pt) Other Treatments Pt in recliner, agreeable to OT Tx. Pt indicates he used the toilet earlier, able to complete hygiene without assistance. He donned underwear and pants i ndependently. Pt indicates he only wears slip on shoes at home and has no concerns with his ability to complete ADLs upon discharge. Pt is hoping to discharge soon. Pt has no concerns with ADLs, no LOB in standing with pant hike. Pt at PLOF with self care. Post tx, pt seated in recliner, call light in reach and all needs met. Education OT Patient Education: Correct positioning, Energy conservation, Modified ADL techniques, Progress toward Goal/Update tx plan, Purpose of tx/functional activities, Rehab process Teaching Recipient: Patient Teaching Methods: Discussion Response to Teaching: Verbalize Understanding OT Custodial Goals Custodial Goals 1=Demonstrate adherence to instructed precautions during ADL tasks. 2=Patient will verbalize/demonstrate understanding of assistive devices/modifications for ADL. 3=Patient will improve strength/tolerance for activity to enable patient to perform ADL's. OT Education/Plan Problem List/Assessment Assessment: No Skilled OT Needs ID'd No skilled OT services indicated at this time, as pt is at OF And independent with ADLs. Discharge Recommendations Plan/Recommendations: Discharge/Goals Met Treatment Plan/Plan of Care Patient would benefit from OT for education, treatment and training to promote independence in ADL's, mobility, safety and/or upper extremity function for ADL's. Plan of Care: ADL Retraining, Functional Mobility Treatment Duration: May 23, 2021 Frequency: 1 time per week (eval only) Estimated Hrs Per Day: .25 hour per day Rehab Potential: Fair Time/GCodes Start Time: 10:12 Stop Time: 10:20 Total Time Billed (hr/min): 8 Billed Treatment Time 1, DANO NEWBERRY OT May 23, 2021 10:49
--- NOTE | 2021-05-23 11:58 | Discharge Summary ---
Diagnosis/Chief Complaint Date of Admission May 20, 2021 at 21:02 Date of Discharge Discharge Date: May 23, 2021 Admission Diagnosis DKA and sepsis d/t colitis Primary Care Ana Lilia Mcmillan MD Discharge Diagnosis (1) DKA (diabetic ketoacidosis) Status: Acute Assessment & Plan: -Basal bolus insulin -20 units long acting in the morning -8 units short acting with meals -Diabetic education provided as pt may need to use SSI while on prednisone (2) Type 2 diabetes mellitus with complication Status: Chronic (3) Metabolic acidosis Status: Resolved Assessment & Plan: Resolved (4) Colitis Status: Acute Assessment & Plan: Prednisone taper as pt has hx of ulcerative colitis Metronidazole and ceftriaxone stopped, no outpatient antibiotics needed. (5) Acute on chronic heart failure with preserved ejection fraction (HFpEF) Status: Acute Assessment & Plan: EF 55-60% Discharge Summary Discharge Physical Exam Allergies: Coded Allergies: No Known Drug Allergies (Unverified , 05/20/21) Vitals & I&Os Vital Signs Date Time Temp Pulse Resp B/P (MAP) Pulse Ox O2 Delivery O2 Flow Rate FiO2 05/23/21 11:44 36.2 05/23/21 08:33 92 25 130/83 97 Room Air General Appearance: No Apparent Distress, Obese HEENT: PERRL/EOMI Respiratory: Chest Non Tender, Lungs Clear, Normal Breath Sounds, No Accessory Muscle Use, No Respiratory Distress Cardiovascular: Regular Rate, Rhythm, No Murmur Gastrointestinal: Normal Bowel Sounds, Non Tender, Soft Extremity: Normal Capillary Refill, Normal Inspection, Non Tender, No Pedal Edema Skin: Warm/Dry, [place] (bilateral shins, improving) Neurologic/Psychiatric: Alert, Oriented x3, Normal Mood/Affect Hospital Course 71 yo male admitted for DKA and sepsis d/t colitis from [facility]. Pt has hx of T2DM, Dementia, CAD, cardiomyopathy, HTN, hyperlipidemia, hypothyroidism, ulcerative colitis, JANI and arthritis being treated with methotrexate. Pt was found to have a Hgb A1c of 14.3%. Pt was placed on insulin drip, K+ and NaCl/de xtrose solution. Pt's hyperglycemia was brought down below 200, so he was switched to SC basal bolus with SSI insulin and glucose remained stable. Pt had CT at prior facility which showed colitis. Pt was started on ceftriaxone and metronidazole, but these have been discontinued. No antibiotics needed on d/c. Due to his hx of ulcerative colitis, he was also started on prednisone. An echo was done and showed an ejection fraction of 55-60%. Pt was given diabetic education prior to d/c. Labs (last 24 hrs) Laboratory Tests 05/22/21 13:40: Glucometer 172H 05/22/21 14:09: Sodium Level 134L, Potassium Level 3.8, Chloride Level 108H, Carbon Dioxide Level 16L, Anion Gap 10, Blood Urea Nitrogen 27H, Creatinine 1.46H, Estimat Glomerular Filtration Rate 52, BUN/Creatinine Ratio 18, Glucose Level 136H, Calcium Level 8.8, Corrected Calcium 8.9, Total Bilirubin 0.3, Aspartate Amino Transf (AST/SGOT) 28, Alanine Aminotransferase (ALT/SGPT) 26, Alkaline Phosphatase 76, Total Protein 6.5, Albumin 3.9 05/22/21 18:09: Glucometer 148H 05/22/21 19:53: Glucometer 225H 05/22/21 21:04: 05/23/21 04:11: White Blood Count 10.5, Red Blood Count 4.65, Hemoglobin 13.3, Hematocrit 39L, Mean Corpuscular Volume 85, Mean Corpuscular Hemoglobin 29, Mean Corpuscular Hemoglobin Concent 34, Red Cell Distribution Width 16.2H, Platelet Count 212, Mean Platelet Volume 10.2, Immature Granulocyte % (Auto) 3, Neutrophils (%) (Auto) 74, Lymphocytes (%) (Auto) 17, Monocytes (%) (Auto) 6, Eosinophils (%) (Auto) 0, Basophils (%) (Auto) 0, Neutrophils # (Auto) 7.8, Lymphocytes # (Auto) 1.8, Monocytes # (Auto) 0.6, Eosinophils # (Auto) 0.0, Basophils # (Auto) 0.0, Immature Granulocyte # (Auto) 0.3H, Sodium Level 133L, Potassium Level 4.0, Chloride Level 107, Carbon Dioxide Level 14L, Anion Gap 12, Blood Urea Nitrogen 28H, Creatinine 1.38H, Estimat Glomerular Filtration Rate 55, BUN/Creatinine Ratio 20, Glucose Level 265H, Calcium Level 8.1L, Corrected Calcium 8.5, Phosphorus Level 3.2, Magnesium Level 1.9, Total Bilirubin 0.4, Aspartate Amino Transf (AST/SGOT) 25, Alanine Aminotransferase (ALT/SGPT) 23, Alkaline P hosphatase 67, Total Protein 5.7L, Albumin 3.5, Beta-Hydroxybutyrate (Chem panel) 0.33H 05/23/21 09:33: Glucometer 298H Microbiology 05/21/21 Urine Culture - Final, Complete NO GROWTH 05/21/21 C. difficile GDH Antigen & Toxins - Final, Complete 05/20/21 MRSA Screen - Final, Complete MRSA not isolated Patient resulted labs reviewed. Pending Labs Laboratory Tests 05/23/21 09:33: Glucometer 298 Imaging: Reviewed Imaging Report Discharge Home Medications: Active Scripts Active Prednisone 10 Mg Tab.ds.pk 10 Mg PO DAILY Take 6 tabs(60mg)daily,decrease by 1 tab(10mg)every other day. Novolog Flexpen (Insulin Aspart) 300 Units/3 Ml Solution 5 Units SQ AC 30 Days Levemir Flextouch (Insulin Detemir) 100 Unit/1 Ml Insuln.pen 20 Units SC HS 30 Days Reported Dicyclomine HCl 10 Mg Capsule 10 Mg PO QID PRN Doxepin HCl 25 Mg Capsule 25 Mg PO HS LAST FILLED 09-18-2020 #90/90 DAY SUPPLY Trospium Chloride 20 Mg Tablet 20 Mg PO BID LAST FILLED 09-28-2020 #180/90 DAY SUPPLY Isosorbide Mononitrate ER (Isosorbide Mononitrate) 30 Mg Tab.er.24h 30 Mg PO DAILY LAST FILLED 09-28-2020 #90/90 DAY SUPPLY Levothyroxine Sodium 175 Mcg Tablet 175 Mcg PO DAILY Fenofibrate 160 Mg Tablet 160 Mg PO DAILY LAST FILLED 02-27-2021 #30/30 DAY SUPPLY Sulfasalazine 500 Mg Tablet 1,000 Mg PO QID TAKES 2 (500MG) TABS Potassium Chloride 20 Meq Tab.er.prt 20 Meq PO HS LAST FILLED 03-23-2021 #30/30 DAY SUPPLY Carvedilol 12.5 Mg Tablet 12.5 Mg PO BID Janumet 50-1,000 mg Tablet (Sitagliptin Phos/Metformin HCl) 1 Each Tablet 1 Ea PO BID WITH MEALS Folic Acid 1 Mg Tablet 1 Mg PO DAILY Lisinopril 10 Mg Tablet 10 Mg PO DAILY Atorvastatin Calcium 80 Mg Tablet 80 Mg PO DAILY Omeprazole 40 Mg Capsule.dr 40 Mg PO BID WITH MEALS Donepezil HCl 10 Mg Tablet 10 Mg PO HS Hydrocodone-Acetamin 5-325 mg (Hydrocodone/Acetaminophen) 1 Each Tablet 1 Ea PO BID PRN Methotrexate (Methotrexate Sodium) 2.5 Mg Tablet 15 Mg PO FRI TAKES 6 (2.5MG) TABS Instructions to patient/family Please see electronic discharge instructions given to patient. Problem Qualifiers (1) DKA (diabetic ketoacidosis): Diabetes mellitus type: type 2 Diabetes mellitus complication detail: without coma Qualified Codes: E11.10 - Type 2 diabetes mellitus with ketoacidosis without coma VERONIKA MARRERO MED STUDENT May 23, 2021 11:58
[2021-05-23] MEDS ORDERED: inSUlin ASPART (NovoLOG) 1 UNIT/0.01 ML (CHARGE PER UNIT) SC SCH (12:00)
[2021-05-23] MEDS ORDERED: INSU100I29 SC (12:31)
[2021-05-23] MEDS ORDERED: PRED10TA22 PO (12:31)
[2021-05-23] MEDS ORDERED: INSU100I14 SQ (12:31)
== END 2021-05-23 13:35 | disposition home or self-care (01) | DRG 871 ==
LOC: ICU 21:02
PROVIDERS: ADMIT Internal Medicine; ATTEND Internal Medicine
DX: A41.9 Sepsis, unspecified organism (principal); E11.10 Type 2 diabetes mellitus with ketoacidosis without coma; I50.33 Acute on chronic diastolic (congestive) heart failure; I13.0 Hypertensive heart and chronic kidney disease with heart failure and stage 1 through stage 4 chronic kidney disease, or unspecified chronic kidney disease; I42.9 Cardiomyopathy, unspecified; K51.90 Ulcerative colitis, unspecified, without complications; N18.30 Chronic kidney disease, stage 3 unspecified; E11.22 Type 2 diabetes mellitus with diabetic chronic kidney disease; I25.10 Atherosclerotic heart disease of native coronary artery without angina pectoris; E03.9 Hypothyroidism, unspecified; E11.65 Type 2 diabetes mellitus with hyperglycemia; K21.9 Gastro-esophageal reflux disease without esophagitis; K22.2 Esophageal obstruction; E11.51 Type 2 diabetes mellitus with diabetic peripheral angiopathy without gangrene; E86.1 Hypovolemia; E78.2 Mixed hyperlipidemia; E66.9 Obesity, unspecified; N41.9 Inflammatory disease of prostate, unspecified; E86.0 Dehydration; I34.0 Nonrheumatic mitral (valve) insufficiency; F03.90 Unspecified dementia, unspecified severity, without behavioral disturbance, psychotic disturbance, mood disturbance, and anxiety; H91.90 Unspecified hearing loss, unspecified ear; Z79.52 Long term (current) use of systemic steroids; Z79.4 Long term (current) use of insulin; Z79.890 Hormone replacement therapy; Z79.899 Other long term (current) drug therapy; Z68.35 Body mass index [BMI] 35.0-35.9, adult; Z79.84 Long term (current) use of oral hypoglycemic drugs; Z87.891 Personal history of nicotine dependence
CPT/HCPCS: 36415; 71045; 71046; 80048; 80053; 80061; 80320; 81000; 82010; 82274; 82436; 82947; 83036; 83605; 83735; 83880; 84100; 84133; 84300; 84484; 85007; 85025; 85027; 87081; 87088; 87324; 87449; 93005; 93306